=== PATIENT | female | born 1945 | race Caucasian/White ===

== ENCOUNTER 2017-10-26 20:40 | Inpatient (IN) ==
[2017-10-26] MEDS ORDERED: [UNRECOGNIZED DRUG - REMARK] OTHER SCH (20:45)
--- NOTE | 2017-10-26 21:20 | XR ---
EXAM DATE: 10/26/2017 9:10 PM EDT AGE/SEX: 89 years / Female INDICATIONS: Post Intubation CLINICAL DATA: This is the patient's initial encounter. Patient reports that signs and symptoms have been present for 1 day and indicates a pain score of Nonresponsive. MEDICAL/SURGICAL HISTORY: Non-responsive. Non-responsive. COMPARISON: No prior exams available for comparison. FINDINGS: Endotracheal tube tip in good position. NG coiled in stomach. Cardiomegaly. Mild edema pattern. CONCLUSION: Endotracheal tube and nasogastric tube in good position. Mild edema pattern. No pneumothorax. Electronically signed by: Álvaro Davis MD 10/26/2017 9:19 PM EDT
[2017-10-26 21:47] LABS: Baso # (Auto) 0.1 th/mm3 (0.0-0.2); Baso % (Auto) 0.8 % (0.0-2.0); Eos # (Auto) 0.2 th/mm3 (0.0-0.4); Hematocrit 33.6 % (35.0-46.0); Hemoglobin 10.3 gm/dL (11.6-15.3); Lymph # (Auto) 1.5 th/mm3 (1.0-4.8); Lymph % (Auto) 9.2 % (9.0-44.0); Mean Corpuscular Volume 84.4 fL (80.0-100.0); Mean Platelet Volume 11.1 fL (7.0-11.0); Mono % (Auto) 6.3 % (0.0-8.0); Neut # (Auto) 13.5 th/mm3 (1.8-7.7); Neut % (Auto) 82.7 % (16.0-70.0); Platelet Count 195 th/mm3 (150-450); Red Blood Count 3.97 mil/mm3 (4.00-5.30); Red Cell Distribution Width 18.3 % (11.6-17.2); White Blood Count 16.4 th/mm3 (4.0-11.0)
[2017-10-26 21:49] LABS: Mean Corpuscular HGB Conc 30.8 % (32.0-36.0)
[2017-10-26 22:12] LABS: Activated Partial Thrombo Time 26.8 sec (24.3-30.1); INR 1.1 Ratio; Prothrombin Time 10.8 sec (9.8-11.6)
[2017-10-26] MEDS ORDERED: Piperacil/Tazo 3.375 GM Premix 50 ML IV.SIG ONE (22:13)
[2017-10-26 22:14] LABS: Albumin 3.1 g/dL (3.4-5.0); Anion Gap 10 meq/L (5-15); Aspartate Aminotransferase 18 U/L (15-37); Blood Urea Nitrogen 37 mg/dL (7-18); Calcium 8.5 mg/dL (8.5-10.1); Carbon Dioxide 22.7 meq/L (21.0-32.0); Chloride 108 meq/L (98-107); Glomerular Filtration Rate 14 mL/min (>89); Glucose,Random 284 mg/dL (74-106); Magnesium 2.4 mg/dL (1.5-2.5); Potassium 3.9 meq/L (3.5-5.1); Sodium 141 meq/L (136-145)
[2017-10-26 22:15] LABS: Alanine Aminotransferase 32 U/L (10-53)
[2017-10-26 22:19] LABS: Alkaline Phosphatase 224 U/L (45-117); Creatine Kinase 148 U/L (26-192); Total Protein 7.2 g/dL (6.4-8.2); Troponin I 0.03 ng/mL (0.02-0.05)
[2017-10-26 22:23] LABS: Free T4 (Free Thyroxine) 1.39 ng/dL (0.76-1.46); Thyroid Stimulating Hormone 0.94 uIU/mL (0.358-3.740)
[2017-10-26 22:29] LABS: ABG PCO2 43 mmHg (38-42); ABG PO2 410 mmHg (61-120)
[2017-10-26 22:31] LABS: Creatine Kinase MB 6.2 ng/mL (0.5-3.6)
--- NOTE | 2017-10-26 22:31 | ED ---
HPI General Chief complaint: Shortness of Breath/Dyspnea Stated complaint: Respiratory/Evac Time Seen by Provider: 10/26/17 20:41 History of Present Illness HPI narrative: Patient brought in by EMS secondary to respiratory distress. She was driving from [place] with her when she developed shortness of breath. The pulled over to the side of the road and called EMS. Upon EMS arrival patient was not moving air and O2 sat was 77%. They gave 1 DuoNeb and advised that they heard rales afterwards. They then placed on CPAP and she subsequently did develop a decline in mental status. Gave her Lasix 70 mg IV and she was intubated with etomidate 20 mg and Versed 4 mg. Related Data Allergies Allergy/AdvReac Type Severity Reaction Status Date / Time atorvastatin [From Lipitor] Allergy unknown Verified 10/26/17 20:42 Iodinated Contrast- Oral and Allergy unknown Verified 10/26/17 20:42 IV Dye Review of Systems ROS Unobtainable due to endotracheal tube PMFSH Medical History Medical History Atrial fibrillation (Acute) Diabetes (Acute) Social History Social History Recent Travel in [facility] within the Last 8 Weeks: No Recent Out of Country Travel within the Last 8 Weeks: No Exam Narrative Exam Narrative: GENERAL: Intubated SKIN: Focused skin assessment warm/dry. HEAD: Atraumatic. Normocephalic. EYES: Pupils equal and round. No scleral icterus. No injection or drainage. ENT: No nasal bleeding or discharge. Mucous membranes pink and moist. NECK: Trachea midline. No JVD. CARDIOVASCULAR: Regular rate and rhythm. No murmur appreciated. RESPIRATORY: Crackles bilaterally GASTROINTESTINAL: Abdomen soft, non-tender, nondistended. Hepatic and splenic margins not palpable. MUSCULOSKELETAL: No obvious deformities. No clubbing. No cyanosis. NEUROLOGICAL: Intubated PSYCHIATRIC: Intubated Course Initial Documented Vital Signs Temperature 98.0 F 10/26/17 20:56 Pulse Rate 72 10/26/17 20:56 Respiratory Rate 20 10/26/17 20:56 Blood Pressure 161/72 H 10/26/17 20:56 Pulse Oximetry 100 10/26/17 20:56 Last Documented Vital Signs Temperature 98.0 F 10/26/17 20:56 Pulse Rate 64 10/26/17 22:16 Respiratory Rate 16 10/26/17 22:16 Blood Pressure 166/73 H 10/26/17 22:16 Pulse Oximetry 100 07/07/18 22:16 Critical Care Time Critical Care Time: Yes Total Critical Care Time: 35 Attestation: Aggregate critical care time was 35 minutes. Time to perform other separately billable procedures was not included in the critical care time. My time did not include minutes spent treating any other patients simultaneously or on activities that did not directly contribute to the patient's treatment. The services I provided to this patient were to treat and/or prevent clinically significant deterioration that could result in: , disability, increased morbidity and mortality I provided critical care services requiring my management, as noted below: Chart data review, documentation time, medication orders and management, vital sign assessments/reviewing monitor data, ordering and reviewing lab tests, ordering and interpreting/reviewing x-rays and diagnostic studies, care of the patient and discussion of the patient with the admitting physicians. Medical Decision Making MDM Narrative Medical decision making narrative: Patient presents to the emergency department secondary to respiratory distress. Patient was intubated in the field by EMS. Patient placed on manager cardiac cath, continuous pulse ox, and labs/chest x-ray ordered. OG tube was also placed the patient was started on propofol for sedation. ECG: SR, rate 72, LBBB (Dr Keene called, advised to place formal consult, no acute intervention at this time) CXR: pulm edema labs: elevated wbc count, decrease hgb/HCT; coags-wnl, abg-slightly acidotic; chem-gluocse increase, creatinine increased, CKMB, BNP increased lactate, bd cx, u/a and cx pening at timeof admit, admit MD to follow. patient starte don IV vancomycin 1gram IV and zosyn 3.375g IV. Grissom placed. Differential Diagnosis Differential Diagnosis: ACS, CHF, PNA, sepsis, pulmonary edema Lab Data Result diagrams: 10/26/17 21:05 10/26/17 21:05 Lab Results 10/26/17 10/26/17 10/26/17 Range/Units 21:05 21:05 21:05 WBC 16.4 H (4.0-11.0) th/mm3 RBC 3.97 L (4.00-5.30) mil/mm3 Hgb 10.3 L (11.6-15.3) gm/dL Hct 33.6 L (35.0-46.0) % MCV 84.4 (80.0-100.0) fL MCH 26.0 L (27.0-34.0) pg MCHC 30.8 L (32.0-36.0) % RDW 18.3 H (11.6-17.2) % Plt Count 195 (150-450) th/mm3 MPV 11.1 H (7.0-11.0) fL Neut % (Auto) 82.7 H (16.0-70.0) % Lymph % (Auto) 9.2 (9.0-44.0) % Snyder % (Auto) 6.3 (0.0-8.0) % Eos % (Auto) 1.0 (0.0-4.0) % Baso % (Auto) 0.8 (0.0-2.0) % Neut # (Auto) 13.5 H (1.8-7.7) th/mm3 Lymph # (Auto) 1.5 (1.0-4.8) th/mm3 Snyder # (Auto) 1.0 H (0.0-0.9) th/mm3 Eos # (Auto) 0.2 (0.0-0.4) th/mm3 Baso # (Auto) 0.1 (0.0-0.2) th/mm3 WBC Differential . Differential Comment Auto diff final PT (9.8-11.6) sec INR Ratio APTT (24.3-30.1) sec Puncture Site Patient Temperature O2 Saturation (90-100) % ABG pH (7.380-7.420) ABG pCO2 (38-42) mmHg ABG pO2 (61-120) mmHg ABG HCO3 (22-26) mmol/L ABG O2 Content (12.0-20.0) Vol % ABG Base Excess (-2-2) mmol/L ABG Methemoglobin (0-2) % Mio Test Hemoglobin (12.0-16.0) G/DL Carboxyhemoglobin (0-4) % O2 Delivery Device Vent Setting Inspired O2 % Critical Value Sodium 141 (136-145) meq/L Potassium 3.9 (3.5-5.1) meq/L Chloride 108 H (98-107) meq/L Carbon Dioxide 22.7 (21.0-32.0) meq/L Anion Gap 10 (5-15) meq/L BUN 37 H (7-18) mg/dL Creatinine 2.89 H (0.50-1.00) mg/dL Estimated GFR 14 L (>89) mL/min Random Glucose 284 H (74-106) mg/dL Calcium 8.5 (8.5-10.1) mg/dL Magnesium 2.4 (1.5-2.5) mg/dL Total Bilirubin 0.5 (0.2-1.0) mg/dL AST 18 (15-37) U/L ALT 32 (10-53) U/L Alkaline Phosphatase 224 H (45-117) U/L Total Creatine Kinase 148 (26-192) U/L CK-MB (CK-2) 6.2 H (0.5-3.6) ng/mL Troponin I 0.03 (0.02-0.05) ng/mL B-Natriuretic Peptide 3359 H (0-100) pg/mL Total Protein 7.2 (6.4-8.2) g/dL Albumin 3.1 L (3.4-5.0) g/dL TSH (0.358-3.740) uIU/mL Free T4 (0.76-1.46) ng/dL 10/26/17 10/26/17 10/26/17 Range/Units 21:05 21:05 22:00 WBC (4.0-11.0) th/mm3 RBC (4.00-5.30) mil/mm3 Hgb (11.6-15.3) gm/dL Hct (35.0-46.0) % MCV (80.0-100.0) fL MCH (27.0-34.0) pg MCHC (32.0-36.0) % RDW (11.6-17.2) % Plt Count (150-450) th/mm3 MPV (7.0-11.0) fL Neut % (Auto) (16.0-70.0) % Lymph % (Auto) (9.0-44.0) % Snyder % (Auto) (0.0-8.0) % Eos % (Auto) (0.0-4.0) % Baso % (Auto) (0.0-2.0) % Neut # (Auto) (1.8-7.7) th/mm3 Lymph # (Auto) (1.0-4.8) th/mm3 Snyder # (Auto) (0.0-0.9) th/mm3 Eos # (Auto) (0.0-0.4) th/mm3 Baso # (Auto) (0.0-0.2) th/mm3 WBC Differential Differential Comment PT 10.8 (9.8-11.6) sec INR 1.1 Ratio APTT 26.8 (24.3-30.1) sec Puncture Site Right radial Patient Temperature 98.6 O2 Saturation 98 (90-100) % ABG pH 7.36 L (7.380-7.420) ABG pCO2 43 H (38-42) mmHg ABG pO2 410 H (61-120) mmHg ABG HCO3 24 (22-26) mmol/L ABG O2 Content 14.5 (12.0-20.0) Vol % ABG Base Excess -1.0 (-2-2) mmol/L ABG Methemoglobin 0.4 (0-2) % Mio Test Present Hemoglobin 9.8 L (12.0-16.0) G/DL Carboxyhemoglobin 0.4 (0-4) % O2 Delivery Device Ventilator Vent Setting Prvc/ac Inspired O2 100 % Critical Value No Sodium (136-145) meq/L Potassium (3.5-5.1) meq/L Chloride (98-107) meq/L Carbon Dioxide (21.0-32.0) meq/L Anion Gap (5-15) meq/L BUN (7-18) mg/dL Creatinine (0.50-1.00) mg/dL Estimated GFR (>89) mL/min Random Glucose (74-106) mg/dL Calcium (8.5-10.1) mg/dL Magnesium (1.5-2.5) mg/dL Total Bilirubin (0.2-1.0) mg/dL AST (15-37) U/L ALT (10-53) U/L Alkaline Phosphatase (45-117) U/L Total Creatine Kinase (26-192) U/L CK-MB (CK-2) (0.5-3.6) ng/mL Troponin I (0.02-0.05) ng/mL B-Natriuretic Peptide (0-100) pg/mL Total Protein (6.4-8.2) g/dL Albumin (3.4-5.0) g/dL TSH 0.940 (0.358-3.740) uIU/mL Free T4 1.39 (0.76-1.46) ng/dL Imaging Data Radiologist's impression: ITS Impressions Chest X-Ray 10/26/17 20:42 CONCLUSION: Endotracheal tube and nasogastric tube in good position. Mild edema pattern. No pneumothorax. Discharge Plan Discharge Disposition Patient Disposition: 30 Still Patient Discharge Condition Condition: Critical Discharge Details Discharge Problem: Pulmonary edema, CHF (congestive heart failure) Physicians Team ED Provider: Shaniqua Mckee Primary Care Provider: UNKNOWN, Attending Provider: Gisele Lovett Discharge Interventions Interventions: Vital Signs Last Done: 10/26/17 22:16 Status ED Status: Admitted Patient
[2017-10-26] MEDS ORDERED: Vancomycin Inj 1 GM/200 ML PIGGYBACK IV.SIG SCH (23:00)
--- NOTE | 2017-10-26 23:05 | ECG ---
Date Performed: 10/26/2017 Time Performed: 20:46:04 PTAGE: 89 years EKG: Sinus rhythm POSSIBLE LEFT ATRIAL ENLARGEMENT LEFT BUNDLE BRANCH BLOCK ABNORMAL ECG NO PREVIOUS TRACING DOCTOR: Dionisio Keene Interpretating Date/Time 10/26/2017 23:03:36
--- NOTE | 2017-10-26 23:26 | P.HPCC ---
History of Present Illness Service: Critical care medicine Primary Care Physician: UNKNOWN Chief Complaint: Respiratory distress History of Present Illness: female with history of coronary artery disease with prior stents approximately 1 year ago, hypertension, diabetes mellitus on home insulin pump, end-stage renal disease on hemodialysis Saturday/Saturday/Saturday for the last year, former smoker ( also states "h/o VT or a stroke" but indicates no neuro deficits. She lives in [place] and she and her were driving home from [place] when she developed worsening SOB. Her states that she has difficulty with SOB that has been slowly progressing over months and that she "has good days and bad days" but her mobility is often limited by dyspnea while using her walker to walk a ~3-5 yards. She is not on home O2. She has been short of breath throughout the day today and thus had increased use of her nebulizer. Has chronic cough in the morning, not changed from baseline. No fever, sputum production, hemoptysis, chest pain, pleuritic symptoms, leg swelling or calf pain. She was in the car this evening when SOB worsened and her called 911. Sats were 77% when EVAC arrived and she had poor air movement bilaterally so she was given a DuoNeb. After the neb she reportedly had bibasilar Rales and so she was placed on CPAP however on CPAP her respiratory condition continued to worsen and she became less responsive. She was intubated in the field after receiving etomidate 20 mg IV and Versed 4 mg IV. EVAC also administered Lasix 70 mg IV. A Grissom catheter has been inserted in the ED and she has 300 of light yellow urine output. Chest x-ray shows satisfactory endotracheal tube and OG tube position. She has pulmonary edema. Her BP was 200/83 on arrival but has normalized after sedation with propofol. She has received vancomycin and Zosyn in the emergency department. EKG showed LBBB and there was no prior EKG for comparison ( unsure if pre-existing) . Troponin 0.03. Dr. Bullard discussed with Dr. Keene who recommended routine cardiology consultation. Last hemodialysis was performed in [place] on Saturday, 10/25. H - Diagnosis (1) Respiratory failure (2) LBBB (left bundle branch block) (3) CHF (congestive heart failure) (4) Pulmonary edema (5) IDDM (insulin dependent diabetes mellitus) (6) Hypothyroid (7) ESRD (end stage renal disease) on dialysis (8) Anemia (9) Leukocytosis (10) CAD (coronary artery disease) (11) Stented coronary artery (12) HTN (hypertension) (13) HLD (hyperlipidemia) Inpatient Certification: I certify that the inpatient services were ordered in accordance with Medicare regulations governing the order. This includes certification that hospital inpatient services are reasonable and necessary and in the case of services not specified as inpatient-only under 42 CFR 419.22(n), that they are appropriately provided as inpatient services in accordance to with the 2-midnight benchmark under 43 CFR 412.3(e) Review of Systems unobtainable due to endotracheal tube PMFSH - History History Provided By: Family Member, Photography Professor / EMT - Medical History Medical History: Medical History (Last Updated 10/27/17 @ 00:31 by Gisele Lovett MD) Atrial fibrillation CAD (coronary artery disease) Diabetes ESRD (end stage renal disease) on dialysis H/O tobacco use, presenting hazards to health Obesity - Surgical History Surgical History: Surgical History (Last Updated 10/27/17 @ 00:31 by Gisele Lovett MD) Stented coronary artery - Family History Family History: Family History (Last Updated 10/27/17 @ 00:32 by Gisele Lovett MD) Mother Family history of diabetes mellitus - Tobacco History Tobacco Use In Past 30 Days: No Smoking Status: Former smoker Tobacco Type: Cigarettes Cigarettes Per Day: 6 Years Smoked: 1 Smoking End Date: 50 years ago - Alcohol History How Often Do You Have a Drink Containing Alcohol: Monthly or less - Substance Use History Substance History: No History of Abuse - Travel History History of Recent Travel: Yes Recent Travel in the [place] Within the Last 8 Weeks: Yes Recent Travel Out of the Country Within the Last 8 Weeks: No Medications and Allergies Active Medications: Active Medications Propofol (Diprivan 1000 Mg/100 Ml Inj) 1,000 mg in 100 mls @ 2.1 mls/hr IV.CONT TITRATE PRN; Protocol PRN Reason: Per Protocol Vancomycin/Sodium Chloride (Vancomycin Inj) 1 gm in 200 mls @ 200 mls/hr IV.SIG FAMILY ENGAGEMENT SPECIALIST SCOTT Miscellaneous Information (Misc Nursing Information) 0 each OTHER Q15M SCOTT Allergies Allergy/AdvReac Type Severity Reaction Status Date / Time atorvastatin [From Lipitor] Allergy unknown Verified 10/26/17 20:42 Iodinated Contrast- Oral and Allergy unknown Verified 10/26/17 20:42 IV Dye Home Medications Medication Instructions Recorded Confirmed Type QUA-fpmyaiuusbjal-drum-buffers 2 tab PO Q6H PRN 10/26/17 10/27/17 History [Vanquish] Dialyvite 800 with Zinc 15 800 PO DAILY 10/26/17 History amlodipine 10 mg PO DAILY 10/26/17 10/26/17 History aspirin 81 mg PO DAILY 10/26/17 10/26/17 History carvedilol [Coreg] 12.5 mg PO BID 10/26/17 10/26/17 History furosemide 60 mg PO DAILY 10/26/17 10/26/17 History hydralazine 50 mg PO TID 10/26/17 10/26/17 History isosorbide mononitrate 30 mg PO DAILY 10/26/17 10/26/17 History levothyroxine 137 PO 10/26/17 History metolazone 5 mg PO DAILY 10/26/17 10/26/17 History simvastatin 40 mg PO QPM 10/26/17 10/26/17 History ticagrelor [Brilinta] 90 mg PO BID 10/26/17 10/26/17 History alprazolam 0.25 mg PO BID PRN 10/27/17 10/27/17 History temazepam [Restoril] 15 PO HS PRN 10/27/17 History Results - Labs CBC & Chem 7: 10/27/17 13:39 10/27/17 13:39 Labs: Short CBC 10/26/17 Range/Units 21:05 WBC 16.4 H (4.0-11.0) th/mm3 Hgb 10.3 L (11.6-15.3) gm/dL Hct 33.6 L (35.0-46.0) % Plt Count 195 (150-450) th/mm3 BMP 10/26/17 21:05 Sodium 141 Potassium 3.9 Chloride 108 H Carbon Dioxide 22.7 BUN 37 H Creatinine 2.89 H Calcium 8.5 Cardiac Enzymes 10/26/17 Range/Units 21:05 Total Creatine Kinase 148 (26-192) U/L CK-MB (CK-2) 6.2 H (0.5-3.6) ng/mL Troponin I 0.03 (0.02-0.05) ng/mL Liver Function 10/26/17 Range/Units 21:05 Total Bilirubin 0.5 (0.2-1.0) mg/dL AST 18 (15-37) U/L ALT 32 (10-53) U/L Alkaline Phosphatase 224 H (45-117) U/L Albumin 3.1 L (3.4-5.0) g/dL - Imaging Impressions Chest X-Ray 10/26/17 20:42 CONCLUSION: Endotracheal tube and nasogastric tube in good position. Mild edema pattern. No pneumothorax. Exam Vital signs: Vital Signs 10/26/17 20:56 10/26/17 21:19 10/26/17 21:33 Temperature 98.0 F Pulse Rate 72 68 Respiratory Rate 16 Blood Pressure 161/72 H 185/114 H 195/88 H Pulse Oximetry 100 100 99 10/26/17 21:36 10/26/17 21:45 10/26/17 22:16 Temperature Pulse Rate 67 66 64 Respiratory Rate 16 Blood Pressure 200/83 H 170/75 H 166/73 H Pulse Oximetry 100 100 100 Intake & Output 10/26/17 10/26/17 10/27/17 06:59 18:59 06:59 Weight 70 kg Narrative: GENERAL: Elderly female who is orotracheally intubated. She is on sedation with propofol 40 mcg/kg/min. SKIN: Warm and dry, adequately perfused. HEAD: Atraumatic. Normocephalic. EYES: Pupils pinpoint bilaterally.. No scleral icterus. No injection or drainage. ENT: No nasal bleeding or discharge. Mucous membranes pink and moist. NECK: Orotracheally intubated, trachea midline. CARDIOVASCULAR: Regular rate and rhythm, sinus rhythm on the monitor with rate in the 60s-70s. No murmurs rubs or gallops. RESPIRATORY: Orotracheally intubated on mechanical ventilation, synchronous with vent. Coarse bibasilar breath sounds. GASTROINTESTINAL: Abdomen soft, non-tender, nondistended, no rebound or guarding appreciated.. Insulin pump in place. Bowel sounds present. MUSCULOSKELETAL: Extremities without clubbing, cyanosis, or edema. No calf swelling or tenderness or erythema. NEUROLOGICAL: Eyes open to voice and spontaneously moving all extremities with purposeful movements towards endotracheal tube. Does not follow commands. Unable to assess speech. Caprini VTE Risk Assessment Caprini VTE Risk Assessment: Moderate/High Risk (score >= 2) Caprini Risk Assessment Model: Point Value = 1 Point Value = 2 Point Value = 3 Point Value = 5 Age 41-60 Minor surgery BMI > 25 kg/m2 Swollen legs Varicose veins or History of unexplained or recurrent spontaneous Oral contraceptives or hormone replacement Sepsis (< 1 month) Serious lung disease, including pneumonia (< 1 month) Abnormal pulmonary function Acute myocardial infarction Congestive heart failure (< 1 month) History of inflammatory bowel disease Medical patient at bed rest Age 61-74 Arthroscopic surgery Major open surgery (> 45 min) Laparoscopic surgery (> 45 min) Malignancy Confined to bed (> 72 hours) Immobilizing plaster cast Central venous access Age >= 75 History of VTE Family history of VTE Factor V Leiden Prothrombin [id number] Lupus anticoagulant Anticardiolipin antibodies Elevated serum homocysteine Heparin-induced thrombocytopenia Other congenital or acquired thrombophilia Stroke (< 1 month) Elective arthroplasty Hip, pelvis, or leg fracture Acute spinal cord injury (< 1 month) Prophylaxis Regimen: Total Risk Factor Score Risk Level Prophylaxis Regimen 0-1 Low Early ambulation 2 Moderate Order ONE of the following: *Sequential Compression Device (SCD) *Heparin 5000 units SQ BID 3-4 Higher Order ONE of the following medications: *Heparin 5000 units SQ TID *Enoxaparin/Lovenox 40 mg SQ daily (WT < 150 kg, CrCl > 30 mL/min) *Enoxaparin/Lovenox 30 mg SQ daily (WT < 150 kg, CrCl > 10-29 mL/min) *Enoxaparin/Lovenox 30 mg SQ BID (WT < 150 kg, CrCl > 30 mL/min) AND/OR *Sequential Compression Device (SCD) 5 or more Highest Order ONE of the following medications: *Heparin 5000 units SQ TID (Preferred with Epidurals) *Enoxaparin/Lovenox 40 mg SQ daily (WT < 150 kg, CrCl > 30 mL/min) *Enoxaparin/Lovenox 30 mg SQ daily (WT < 150 kg, CrCl > 10-29 mL/min) *Enoxaparin/Lovenox 30 mg SQ BID (WT < 150 kg, CrCl > 30 mL/min) AND *Sequential Compression Device (SCD) Assessment and Plan - Problem List (1) Respiratory failure Code(s): J96.90 - Respiratory failure, unspecified, unspecified whether with hypoxia or hypercapnia Status: Acute (2) LBBB (left bundle branch block) Code(s): I44.7 - Left bundle-branch block, unspecified Status: Chronic Onset Date: Unknown (3) CHF (congestive heart failure) Code(s): I50.9 - Heart failure, unspecified Status: Acute (4) Pulmonary edema Code(s): J81.1 - Chronic pulmonary edema Status: Acute (5) IDDM (insulin dependent diabetes mellitus) Code(s): E11.9 - Type 2 diabetes mellitus without complications; Z79.4 - longterm (current) use of insulin Status: Chronic (6) Hypothyroid Code(s): E03.9 - Hypothyroidism, unspecified Status: Chronic (7) ESRD (end stage renal disease) on dialysis Code(s): N18.6 - End stage renal disease; Z99.2 - Dependence on renal dialysis Status: Chronic (8) Anemia Code(s): D64.9 - Anemia, unspecified Status: Chronic (9) Leukocytosis Code(s): D72.829 - Elevated white blood cell count, unspecified Status: Acute (10) CAD (coronary artery disease) Code(s): I25.10 - Atherosclerotic heart disease of [place] coronary artery without angina pectoris Status: Chronic (11) Stented coronary artery Code(s): Z95.5 - Presence of coronary angioplasty implant and graft Status: Chronic (12) HTN (hypertension) Code(s): I10 - Essential (primary) hypertension Status: Chronic (13) HLD (hyperlipidemia) Code(s): E78.5 - Hyperlipidemia, unspecified Status: Chronic - Assessment and Plan Plan: NEURO: Propofol for sedation, target RASS -2 RESP: Acute respiratory failure Pulmonary edema Duoneb every 6 hours. Albuterol q2 hours as needed. Vent Bundle. CPAP trials following HD and extubate if tolerated. She has an outpatient art glass designer, her is uncertain of physician name. CV: Hypertension Hyperlipidemia Coronary artery disease with prior stents (reportedly about a year ago) Left bundle branch block Significant hypertension on presentation is now normalized on propofol drip. Follow-up troponins and EKG Obtain 2D echo Cardiology consult Continue aspirin, Brilinta, statin, beta-jeff GI: OG tube in place. In satisfactory position on chest x-ray. Low intermittent wall suction. Bowel regimen. FEN/RENAL: End-stage renal disease on HD She does still make some urine. A Grissom catheter has been placed in the ED which will continue for now to monitor intake and output. Lasix 70 mg IV was provided per EVAC. Will consult nephrology for hemodialysis, currently not emergent but will need dialysis tomorrow to facilitate vent weaning. Her front office administrator is from out [place] [facility], states "Dr. Newton". She has been on HD ~ 1year. Has LUE fistula, Last HD 10/25. ID: Leukocytosis She received Zosyn and vancomycin in the emergency department. Blood cultures and urine culture were sent in the ED. Will obtain sputum culture HEME: Chronic anemia Monitor CBC ENDO: Insulin-dependent diabetes mellitus Hold insulin pump. Insulin drip algorithm #3. Hypothyroidism Follow-up TSH, resume Synthroid if appropriate PROPH: Heparin 5000 units subcu every 12 hours and SCDs for DVT prophylaxis. Famotidine 10 mg IV every 12 hours for stress ulcer prophylaxis. ACCESS: Peripheral IV providing adequate access at this time. Has been updated at bedside. Multiple questions answered. She has had multiple issues with shortness of breath and volume overload but has never been intubated in the past. Full code Level 3 H&P (3) CHF (congestive heart failure) Qualifiers: Heart failure type: unspecified Heart failure chronicity: unspecified Qualified Code(s): I50.9 - Heart failure, unspecified (4) Pulmonary edema Qualifiers: Chronicity: acute Qualified Code(s): J81.0 - Acute pulmonary edema
[2017-10-26] MEDS: Propofol 1000 mg/100 ml Inj 1,000 MG/100 ML BOTTLE IV.CONT PRN (23:49)
[2017-10-27] MEDS ORDERED: Dextrose 50% in Water 50 ML Vial IV.PUSH PRN ×2 (00:03→07:58)
[2017-10-27] MEDS ORDERED: Acetaminophen 325 MG Tablet PO PRN ×2 (00:06→10:28)
[2017-10-27] MEDS ORDERED: Bisacodyl 10 MG Supp RECTAL PRN (00:06)
[2017-10-27] MEDS ORDERED: Insulin Regular (For Infusion) 100 UNIT in Sodium Chlor 0.9% Inj 99 ML IV.CONT PRN (00:30)
[2017-10-27] MEDS: Heparin - SQ 10,000 UNITS/ML Vial SQ SCH ×2 (00:38→13:08)
[2017-10-27 01:21] LABS: Amorphous Sediment,Urine Many /hpf; Bacteria,Urine Rare /hpf; Bilirubin,Urine Negative (Negative); Clarity,Urine Clear (Clear); Color,Urine Yellow (Yellw/Straw); Glucose,Urine (UA) 50 mg/dL (Negative); Hyaline Casts,Urine 3 /lpf (0-3); Leukocyte Esterase,Urine Negative (Negative); Nitrite,Urine Negative (Negative); Specific Gravity,Urine 1.009 (1.002-1.035); Squamous Epithelial Cell,Urine <1 /hpf (0-5)
[2017-10-27] MEDS ORDERED: Chlorhexidine Gluconate 2% 1 Pack (2 Cloths) TOPICAL PRN (04:00)
[2017-10-27 08:54] LABS: Hemoglobin 9.8 gm/dL (11.6-15.3); Mean Corpuscular HGB Conc 31.5 % (32.0-36.0); Mean Corpuscular Volume 82.6 fL (80.0-100.0); Mean Platelet Volume 10.7 fL (7.0-11.0); Platelet Count 161 th/mm3 (150-450); Red Blood Count 3.75 mil/mm3 (4.00-5.30); Red Cell Distribution Width 18.6 % (11.6-17.2); White Blood Count 13.4 th/mm3 (4.0-11.0)
[2017-10-27 09:35] LABS: Alanine Aminotransferase 26 U/L (10-53); Albumin 2.8 g/dL (3.4-5.0); Alkaline Phosphatase 164 U/L (45-117); Anion Gap 13 meq/L (5-15); Aspartate Aminotransferase 12 U/L (15-37); Blood Urea Nitrogen 44 mg/dL (7-18); Calcium 9.1 mg/dL (8.5-10.1); Carbon Dioxide 22.4 meq/L (21.0-32.0); Chloride 107 meq/L (98-107); Glomerular Filtration Rate 13 mL/min (>89); Glucose,Random 142 mg/dL (74-106); Potassium 3.5 meq/L (3.5-5.1); Sodium 142 meq/L (136-145); Total Protein 6.6 g/dL (6.4-8.2)
[2017-10-27] MEDS: Chlorhexidine Gluconate 2% 1 Pack (2 Cloths) TOPICAL SCH (09:49)
[2017-10-27] MEDS: Insulin NovoLIN Regular Correctional Sugar Inj SQ SCH ×4 (10:10→21:04)
[2017-10-27] MEDS: hydrALAZINE 50 MG Tablet PO SCH ×3 (10:11→20:53)
[2017-10-27] MEDS: Famotidine PF Inj 20 MG/2 ML Vial IV.PUSH SCH ×2 (10:11→20:55)
[2017-10-27] MEDS: Oral Hygiene Kit OROPHARYNG SCH ×3 (10:11→16:14)
[2017-10-27] MEDS: Chlorhexidine 0.12% Oral Kit 15 ML UDC OROPHARYNG SCH ×2 (10:11→20:54)
[2017-10-27] MEDS: Furosemide 20 MG Tablet PO SCH (10:11)
[2017-10-27] MEDS: amLODIPine 10 MG Tablet PO SCH (10:12)
[2017-10-27] MEDS: metOLazone 5 MG Tablet PO SCH (10:12)
[2017-10-27] MEDS: Carvedilol 12.5 MG Tablet PO SCH ×2 (10:12→20:55)
[2017-10-27] MEDS: Senna/Docusate Sodium 8.6/50 MG Tablet PO SCH ×2 (10:12→20:55)
--- NOTE | 2017-10-27 10:21 | P.PNCC ---
Subjective Subjective Remarks/Hospital Course: female with history of coronary artery disease with prior stents approximately 1 year ago, hypertension, diabetes mellitus on home insulin pump, end-stage renal disease on hemodialysis Saturday/Saturday/Saturday for the last year, former smoker ( also states "h/o CA or a stroke" but indicates no neuro deficits. She lives in [place] and she and her were driving home from [place] when she developed worsening SOB. Her states that she has difficulty with SOB that has been slowly progressing over months and that she "has good days and bad days" but her mobility is often limited by dyspnea while using her walker to walk a ~3-5 yards. She is not on home O2. She has been short of breath throughout the day today and thus had increased use of her nebulizer. Has chronic cough in the morning, not changed from baseline. No fever, sputum production, hemoptysis, chest pain, pleuritic symptoms, leg swelling or calf pain. She was in the car this evening when SOB worsened and her called 911. Sats were 77% when EVAC arrived and she had poor air movement bilaterally so she was given a DuoNeb. After the neb she reportedly had bibasilar Rales and so she was placed on CPAP however on CPAP her respiratory condition continued to worsen and she became less responsive. She was intubated in the field after receiving etomidate 20 mg IV and Versed 4 mg IV. EVAC also administered Lasix 70 mg IV. A Grissom catheter has been inserted in the ED and she has 300 of light yellow urine output. Chest x-ray shows satisfactory endotracheal tube and OG tube position. She has pulmonary edema. Her BP was 200/83 on arrival but has normalized after sedation with propofol. She has received vancomycin and Zosyn in the emergency department. EKG showed LBBB and there was no prior EKG for comparison ( unsure if pre-existing) . Troponin 0.03. Dr. Bullard discussed with Dr. Keene who recommended routine cardiology consultation. Last hemodialysis was performed in [place] on Saturday, 10/25. 10/27 Patient is sedated with Diprivan and intubated. Afebrile. Objective Vital Signs / I&O: Vital Signs 10/26/17 20:56 10/26/17 21:19 10/26/17 21:33 Temperature 98.0 F Pulse Rate 72 68 Respiratory Rate 16 Blood Pressure 161/72 H 185/114 H 195/88 H Pulse Oximetry 100 100 99 10/26/17 21:36 10/26/17 21:45 10/26/17 22:16 Temperature Pulse Rate 67 66 64 Respiratory Rate 16 Blood Pressure 200/83 H 170/75 H 166/73 H Pulse Oximetry 100 100 100 10/26/17 23:48 10/26/17 23:51 10/27/17 01:00 Temperature 97.8 F Pulse Rate 56 L 61 Respiratory Rate 16 17 16 Blood Pressure 143/68 H 142/63 H Pulse Oximetry 100 100 100 10/27/17 02:00 10/27/17 02:20 10/27/17 02:24 Temperature 97.8 F Pulse Rate 56 L 51 L 51 L Respiratory Rate 16 16 Blood Pressure 142/63 H 142/63 H Pulse Oximetry 100 10/27/17 02:34 10/27/17 03:00 10/27/17 03:31 Temperature 97.4 F L Pulse Rate 60 55 L Respiratory Rate 20 21 16 Blood Pressure 153/72 H 152/67 H Pulse Oximetry 100 100 10/27/17 03:37 10/27/17 03:42 10/27/17 03:45 Temperature Pulse Rate 54 L 57 L Respiratory Rate 16 16 21 Blood Pressure 154/67 H Pulse Oximetry 100 100 10/27/17 04:00 10/27/17 04:15 10/27/17 04:30 Temperature 97.5 F L Pulse Rate 56 L 54 L 55 L Respiratory Rate 16 18 17 Blood Pressure 151/67 H 144/63 H 139/63 Pulse Oximetry 100 100 100 10/27/17 04:45 10/27/17 05:00 10/27/17 05:15 Temperature 97.8 F Pulse Rate 53 L 52 L 53 L Respiratory Rate 16 16 16 Blood Pressure 142/63 H 134/63 136/63 Pulse Oximetry 100 100 100 10/27/17 05:30 10/27/17 05:45 10/27/17 06:00 Temperature 97.8 F Pulse Rate 56 L 55 L 54 L Respiratory Rate 16 16 16 Blood Pressure 145/68 H 142/65 H 141/64 H Pulse Oximetry 100 100 100 10/27/17 06:15 10/27/17 06:30 10/27/17 06:45 Temperature Pulse Rate 50 L 49 L 55 L Respiratory Rate 16 16 16 Blood Pressure 124/59 L 116/58 L 137/63 Pulse Oximetry 100 100 100 10/27/17 07:00 10/27/17 07:01 10/27/17 07:15 Temperature 97.6 F Pulse Rate 62 61 61 Respiratory Rate 17 16 16 Blood Pressure 152/71 H 152/71 H 159/74 H Pulse Oximetry 100 100 100 10/27/17 07:30 10/27/17 07:45 10/27/17 08:00 Temperature Pulse Rate 60 60 59 L Respiratory Rate 16 16 22 Blood Pressure 155/71 H 157/71 H Pulse Oximetry 100 100 100 10/27/17 08:05 10/27/17 08:15 10/27/17 08:32 Temperature 99.4 F Pulse Rate 61 60 Respiratory Rate 26 H 17 16 Blood Pressure 108/70 113/63 Pulse Oximetry 100 100 100 Intake & Output 10/26/17 10/27/17 10/27/17 18:59 06:59 18:59 Intake Total 250 / 250 Output Total 700 / 700 Balance -450 / -450 Weight 68.1 kg Intake: IV 250 / 250 Zosyn 3.375 GM Premix 50 ML @ 50 / 50 100 mls/hr IV.SIG ONCE ONE Rx#: [id number] Vancomycin Inj 1 gm In 200 ml @ 200 / 200 200 mls/hr IV.SIG [facility] Rx#:[id number] Oral 0 / 0 Output: Urine Amount (Catheter) 700 / 700 Indwelling Temp Sensing 700 / 700 Catheter Other: Weight On Admission 68.1 kg Result Diagrams: 10/27/17 08:29 10/27/17 08:29 Other Results: Laboratory Results - last 12 hr 10/26/17 10/26/17 10/26/17 21:05 21:05 21:05 WBC RBC Hgb Hct MCV MCH MCHC RDW Plt Count MPV PT 10.8 INR 1.1 APTT 26.8 Puncture Site Patient Temperature O2 Saturation ABG pH ABG pCO2 ABG pO2 ABG HCO3 ABG O2 Content ABG Base Excess ABG Methemoglobin Mio Test Hemoglobin Carboxyhemoglobin O2 Delivery Device Vent Setting Inspired O2 Critical Value Sodium 141 Potassium 3.9 Chloride 108 H Carbon Dioxide 22.7 Anion Gap 10 BUN 37 H Creatinine 2.89 H Estimated GFR 14 L Random Glucose 284 H Lactic Acid Calcium 8.5 Magnesium 2.4 Total Bilirubin 0.5 AST 18 ALT 32 Alkaline Phosphatase 224 H Total Creatine Kinase 148 CK-MB (CK-2) 6.2 H Troponin I 0.03 B-Natriuretic Peptide 3359 H Total Protein 7.2 Albumin 3.1 L TSH Free T4 Urine Color Urine Clarity Urine pH Ur Specific Lester Urine Protein Urine Glucose (UA) Urine Ketones Urine Occult Blood Urine Nitrate Urine Bilirubin Urine Urobilinogen Ur Leukocyte Esterase Urine RBC Urine WBC Ur Squamous Epith Cells Amorphous Sediment Urine Bacteria Hyaline Casts Micro UA Comment Urine Culture Comments Nasal Screen MRSA (PCR) 10/26/17 10/26/17 10/26/17 21:05 21:05 22:00 WBC RBC Hgb Hct MCV MCH MCHC RDW Plt Count MPV PT INR APTT Puncture Site Right radial Patient Temperature 98.6 O2 Saturation 98 ABG pH 7.36 L ABG pCO2 43 H ABG pO2 410 H ABG HCO3 24 ABG O2 Content 14.5 ABG Base Excess -1.0 ABG Methemoglobin 0.4 Mio Test Present Hemoglobin 9.8 L Carboxyhemoglobin 0.4 O2 Delivery Device Ventilator Vent Setting Prvc/ac Inspired O2 100 Critical Value No Sodium Potassium Chloride Carbon Dioxide Anion Gap BUN Creatinine Estimated GFR Random Glucose Lactic Acid Calcium Magnesium Total Bilirubin AST ALT Alkaline Phosphatase Total Creatine Kinase CK-MB (CK-2) Troponin I B-Natriuretic Peptide Total Protein Albumin TSH 0.940 Free T4 1.39 Urine Color Yellow Urine Clarity Clear Urine pH 5.0 Ur Specific Lester 1.009 Urine Protein 100 H Urine Glucose (UA) 50 Urine Ketones Negative Urine Occult Blood Small H Urine Nitrate Negative Urine Bilirubin Negative Urine Urobilinogen Less than 2 Ur Leukocyte Esterase Negative Urine RBC 1 Urine WBC 1 Ur Squamous Epith Cells <1 Amorphous Sediment Many H Urine Bacteria Rare H Hyaline Casts 3 Micro UA Comment Cath-culture ind Urine Culture Comments Cath-cult indicated Nasal Screen MRSA (PCR) 10/26/17 10/27/17 10/27/17 22:55 02:45 03:47 WBC RBC Hgb Hct MCV MCH MCHC RDW Plt Count MPV PT INR APTT Puncture Site Patient Temperature O2 Saturation ABG pH ABG pCO2 ABG pO2 ABG HCO3 ABG O2 Content ABG Base Excess ABG Methemoglobin Mio Test Hemoglobin Carboxyhemoglobin O2 Delivery Device Vent Setting Inspired O2 Critical Value Sodium Potassium Chloride Carbon Dioxide Anion Gap BUN Creatinine Estimated GFR Random Glucose Lactic Acid 0.9 Calcium Magnesium Total Bilirubin AST ALT Alkaline Phosphatase Total Creatine Kinase CK-MB (CK-2) Troponin I 0.05 B-Natriuretic Peptide Total Protein Albumin TSH Free T4 Urine Color Urine Clarity Urine pH Ur Specific Lester Urine Protein Urine Glucose (UA) Urine Ketones Urine Occult Blood Urine Nitrate Urine Bilirubin Urine Urobilinogen Ur Leukocyte Esterase Urine RBC Urine WBC Ur Squamous Epith Cells Amorphous Sediment Urine Bacteria Hyaline Casts Micro UA Comment Urine Culture Comments Nasal Screen MRSA (PCR) Not detected 10/27/17 10/27/17 10/27/17 08:29 08:29 08:29 WBC 13.4 H RBC 3.75 L Hgb 9.8 L Hct 31.0 L MCV 82.6 MCH 26.0 L MCHC 31.5 L RDW 18.6 H Plt Count 161 MPV 10.7 PT INR APTT Puncture Site Patient Temperature O2 Saturation ABG pH ABG pCO2 ABG pO2 ABG HCO3 ABG O2 Content ABG Base Excess ABG Methemoglobin Mio Test Hemoglobin Carboxyhemoglobin O2 Delivery Device Vent Setting Inspired O2 Critical Value Sodium 142 Potassium 3.5 Chloride 107 Carbon Dioxide 22.4 Anion Gap 13 BUN 44 H Creatinine 3.07 H Estimated GFR 13 L Random Glucose 142 H D Lactic Acid Calcium 9.1 Magnesium Total Bilirubin 0.6 AST 12 L ALT 26 Alkaline Phosphatase 164 H Total Creatine Kinase CK-MB (CK-2) Troponin I 0.04 B-Natriuretic Peptide Total Protein 6.6 D Albumin 2.8 L TSH Free T4 Urine Color Urine Clarity Urine pH Ur Specific Lester Urine Protein Urine Glucose (UA) Urine Ketones Urine Occult Blood Urine Nitrate Urine Bilirubin Urine Urobilinogen Ur Leukocyte Esterase Urine RBC Urine WBC Ur Squamous Epith Cells Amorphous Sediment Urine Bacteria Hyaline Casts Micro UA Comment Urine Culture Comments Nasal Screen MRSA (PCR) Imaging: Chest X-Ray 10/26/17 20:42 CONCLUSION: Endotracheal tube and nasogastric tube in good position. Mild edema pattern. No pneumothorax. Objective Remarks: GENERAL: Patient is intubated and sedated. SKIN: Warm and dry. HEAD: Normocephalic. EYES: No scleral icterus. No injection or drainage. NECK: Supple, trachea midline. No JVD or lymphadenopathy. CARDIOVASCULAR: Regular rate and rhythm without murmurs, gallops, or rubs. RESPIRATORY: Breath sounds equal bilaterally. No accessory muscle use. GASTROINTESTINAL: Abdomen soft, non-tender, nondistended. MUSCULOSKELETAL: No cyanosis, or edema. Neuro: Sedated. Assessment and Plan - Assessment and Plan Plan: NEURO: Propofol for sedation, target RASS -2 Daily sedation vacation. RESP: Acute respiratory failure Pulmonary edema Continue with vent support keep sats >92% Duoneb every 6 hours. Albuterol q2 hours as needed. Vent Bundle. CPAP trials following HD CV: Hypertension Hyperlipidemia Coronary artery disease with prior stents (reportedly about a year ago) Left bundle branch block Significant hypertension on presentation is now normalized on propofol drip. Follow-up troponins and EKG 2D echo ordered and Cardiology consulted Continue aspirin, Brilinta 90mg BID, statin, Coreg 3.125mg BID, Hydralazine 50mg TID, Norvasc 10mg daily GI: Start tube feeds- Nepro with goal rate 40ml/hr On Pepcid for GI prophylaxis FEN/RENAL: End-stage renal disease on HD Monitor renal function, I/O's, avoid nephrotoxins Renal consulted. On Lasix 60mg daily and Zaroxolyn 5mg daily. Her casting room helper is from out [facility], states "Dr. Newton". She has been on HD ~ 1year. Has LUE fistula, Last HD 10/25. HD per renal. ID: Leukocytosis.. trending down She received Zosyn and vancomycin in the emergency department. Continue abx and monitor for signs of infections ( fever, WBC) WBC is trending down. Follow up on Blood, sputum and urine cultures HEME: Chronic anemia Monitor CBC ENDO: Insulin-dependent diabetes mellitus Place on SSI with accuchecks Hypothyroidism TSH: 0.94 PROPH: Heparin 5000 units subcu every 12 hours and SCDs for DVT prophylaxis. Famotidine 10 mg IV every 12 hours for stress ulcer prophylaxis. Doppler US LE negative for DVT ACCESS: Peripheral IV providing adequate access at this time. Full code Level 3
[2017-10-27] MEDS ORDERED: Heparin 10,000 UNITS/10 ML Vial (for IV use) IV.FLUSH PRN (10:28)
[2017-10-27] MEDS ORDERED: Sod Chloride 0.9% Inj 1,000 ML OTHER PRN ×2 (10:28)
[2017-10-27] MEDS ORDERED: Heparin 10,000 UNITS/10 ML Vial (for IV use) OTHER PRN (10:28)
[2017-10-27] MEDS ORDERED: Sod Chloride 0.9% Inj 1,000 ML IV.CONT PRN (10:28)
[2017-10-27] MEDS ORDERED: Gelatin 12 MM/7 MM Topical Foam TOPICAL PRN (10:28)
--- NOTE | 2017-10-27 11:13 | MB ---
cc: Gianni Morales MD DATE: 10/27/2017 REASON FOR CONSULTATION: End-stage renal disease management. HISTORY OF PRESENT ILLNESS: This is a 75-year-old female with an apparent history of end-stage renal disease for approximately 1 year. The patient receives her dialysis in the [facility] area with Dr. Newton, who is her foster care therapist there. The patient has a long history of COPD as well as CAD. Apparently, she was traveling with her from [place] driving home to [place] when she developed progressive shortness of breath. She apparently has had ongoing COPD with dyspnea and uses a walker; however, is limited by dyspnea after walking more than 3-5 yards at baseline. Apparently, the patient had progressive shortness of breath and was brought here to the hospital. Here the patient's respiratory status continued to decline after initially attempted ventilation with CPAP and she was eventually intubated. The patient was given a dose of Lasix and she had some urine output; however, her chest x-ray showed findings of significant pulmonary edema. The patient was intubated. Her blood pressure was also elevated with a blood pressure of 200/83 on arrival; however, after sedation and intubation, her blood pressure normalized and now is running systolics 80s-90s. There is a question of some possible infiltration on the x-ray and she was given empiric vancomycin and Zosyn as well. Regarding her cardiac status, EKG showed a left bundle branch block. It was unclear if this was new or old. There are no previous records here for comparison. Her troponins are stable at 0.04 and Cardiology has been consulted for further evaluation. At this time, the patient is intubated in the ICU. She apparently had her last hemodialysis done 2 days ago outpatient, presumably in [place] on her way down here. Nephrology was consulted for further evaluation. REVIEW OF SYSTEMS: Unobtainable, as the patient is intubated at this time. PAST MEDICAL HISTORY: Reviewed from the chart. PAST MEDICAL HISTORY: Includes atrial fibrillation, CAD, diabetes, ESRD, on hemodialysis, apparently last done on Saturday. The patient follows up with Dr. Newton in [place], [place]. Also, history of tobacco use with COPD, obesity. SURGICAL HISTORY: Includes coronary stents, left radiocephalic fistula with good thrill. SOCIAL HISTORY: Diabetes. Tobacco history, a former smoker with 6 cigarettes per day, however, quit over 50 years ago, otherwise social history negative. FAMILY HISTORY: Unknown. PHYSICAL EXAMINATION: VITAL SIGNS: At the time of evaluation, temperature 99.4, pulse 60, respiratory rate 17 on ventilator, blood pressure 113/63, pulse oximetry 100% on 30% FiO2. GENERAL: Intubated, sedated. NECK: Soft, supple. CARDIAC: Regular rate and rhythm. PULMONARY: Clear to auscultation; however, rales at bases. ABDOMEN: Soft, nontender, nondistended. EXTREMITIES: No edema. LABORATORY DATA: Sodium 142, potassium 3.5, chloride 107, bicarbonate 22, BUN 44, creatinine 3, and glucose 135, calcium 9.1. TSH 0.9. White count 13.4, hemoglobin 9.8, hematocrit 31.0 with platelet count of 161. ASSESSMENT AND PLAN: 1. End-stage renal disease. The patient apparently is on hemodialysis and received her last dialysis on Saturday as an outpatient. She apparently follows up with Dr. Newton in [place], [place]. The patient presented with significant volume overload with pulmonary edema. We will go ahead and do dialysis today for further fluid removal to hopefully assist with extubation. We will repeat dialysis tomorrow as well and do ultrafiltration as tolerated. The patient has a left radiocephalic fistula with a good thrill. Protect left arm. We will do dialysis here and continue to monitor for improvement in respiratory status. 2. Pulmonary edema. The patient has underlying chronic obstructive pulmonary disease with possible congestive heart failure and history of coronary artery disease. We will do ultrafiltration as tolerated with dialysis. Continue to monitor with primary team, as well as ICU. 3. Left bundle branch block. The patient has findings of left bundle branch block on EKG. It is unknown if this is new or old. She is being followed with cardiology here in consultation. Her initial troponin values were negative. Continue to monitor. 4. Hypertension. The patient had initial blood pressure of 200/83; however, this was at the time where she presented with dyspnea and was subsequently intubated. At this point, her blood pressure is improved to the 110s/60s now. Continue with home blood pressure medications and ultrafiltration as tolerated with dialysis. 5. Leukocytosis. The patient with mildly elevated white count of 16. She was started on vancomycin and Zosyn. Continue renal dose and monitor closely. 6. Insulin-dependent diabetes. Continue to monitor with insulin sliding scale. 7. Hypothyroidism. Continue with Synthroid. MD FAISAL Wagner/JENI , 10:38 AM , 11:12 AM MARCY
--- NOTE | 2017-10-27 11:29 | US ---
EXAM DATE: 10/27/2017 11:08 AM EDT AGE/SEX: 89 years / Female INDICATIONS: Bilateral leg swelling. CLINICAL DATA: This is the patient's initial encounter. Patient reports that signs and symptoms have been present for 1 day and indicates a pain score of Nonresponsive. MEDICAL/SURGICAL HISTORY: . Atrial fibrillation. Coronary artery disease. Diabetes. End stage r enal failure. Obesity. . Coronary artery stent. COMPARISON: No prior exams available for comparison. TECHNIQUE: Venous ultrasound of both lower extremities was performed from the inguinal ligament to t he proximal calf. Real-time, color Doppler and spectral tracing, compression and augmentation techni ques were used. FINDINGS: Right Leg: Normal compression of the deep venous system from the inguinal region to the proximal angela f. No echogenic clot is seen. Normal response of the venous system to augmentation and respiration. Left Leg: Normal compression of the deep venous system from the inguinal region to the proximal calf . No echogenic clot is seen. Normal response of the venous system to augmentation and respiration. Other: None. CONCLUSION: 1. The study is negative for bilateral lower extremity deep venous thrombosis. Electronically signed by: Shane Ramirez MD 10/27/2017 11:27 AM EDT
--- NOTE | 2017-10-27 11:51 | MB ---
cc: Dionisio Keene MD DATE: 10/27/2017 REASON FOR CONSULTATION: Left bundle branch block, respiratory failure. HISTORY OF PRESENT ILLNESS: History is unobtainable from the patient who is intubated and sedated. History is obtained from electronic medical records. She is an elderly, white female with a history of coronary artery disease, status post percutaneous coronary intervention last year in [place], history of diabetes, hypertension, end-stage renal disease, CVA, who while driving home from [place] developed increasing shortness of breath. She was brought to the emergency department where she was found to be hypoxemic and in severe respiratory distress, so she was intubated and placed on mechanical ventilation. Workup has suggested congestive heart failure. EKG on admission showed a left bundle branch block without prior EKG for comparison. There has been no definite complaints of recurrent chest pain. Other history is currently unobtainable. PAST MEDICAL HISTORY: As above, with no other details currently available. CURRENT CARDIAC MEDICATIONS: 1. Amlodipine 10 mg p.o. daily. 2. Aspirin 81 mg p.o. daily. 3. Carvedilol 12.5 mg p.o. b.i.d. 4. Furosemide 60 mg p.o. daily. 5. Heparin 5000 units subcutaneously q. 12 hours. 6. Hydralazine 50 mg p.o. t.i.d. 7. Metolazone 5 mg p.o. daily. 8. Pravastatin 80 mg p.o. at bedtime. 9. Brilinta 90 mg p.o. b.i.d. ALLERGIES: ATORVASTATIN, IV CONTRAST, ORAL CONTRAST. FAMILY HISTORY: Noncontributory. SOCIAL HISTORY: The patient apparently is a former smoker without history of alcohol abuse. REVIEW OF SYSTEMS: Currently, unobtainable. PHYSICAL EXAMINATION: VITAL SIGNS: Blood pressure 113/63 with a pulse of 60, respirations 16. GENERAL: She is a well-developed, well-nourished white female, currently intubated and sedated. NECK: Jugular venous pressure is normal. Carotid pulses are 2+ bilaterally and without bruits. CHEST: Reveals clear lungs phelan anteriorly. CARDIAC: She has a regular rhythm and rate without S3, S4, or murmur. ABDOMEN: She has a soft abdomen. Bowel sounds are present. There is no definite hepatosplenomegaly. EXTREMITIES: Reveals no clubbing, cyanosis or edema. LABORATORY DATA: EKG shows sinus rhythm, left bundle branch block, left atrial abnormality. Chest x-ray shows "mild edema pattern." LABORATORY DATA: Includes potassium 3.5, BUN 44, creatinine 3.07. Troponin 0.05, CK 148, CK-MB 6.2. INR 1.1. IMPRESSION: Respiratory failure, possible congestive heart failure in this elderly white female with a history of coronary artery disease, apparently status post percutaneous coronary intervention last year, history of diabetes, hypertension, hyperlipidemia, end-stage renal disease, CVA. I have been asked to see the patient for left bundle branch block. The chronicity of her left bundle branch block is unclear, as she has no old EKGs for comparison. Overall, there is no evidence for acute coronary syndrome. Cardiac enzymes are basically negative for myocardial infarction. Chest x-ray, clinical presentation, laboratory data including an elevated brain natriuretic peptide level, all suggest the possibility of acute congestive heart failure. RECOMMENDATIONS: 1. Continue to try to wean ventilatory support. 2. Consider mild diuresis. 3. Continue her comprehensive cardiac medical regimen. 4. Await her 2D echo. 5. Obtain further clinical history once the patient has been extubated and is able to communicate. Dionisio Keene MD G[facility]/TL , 11:03 AM , 11:50 AM [email or web address]
--- NOTE | 2017-10-27 12:06 | P.DIET ---
Nutritional Evaluation Nutrition consult regarding: Tube Feeding Objective - Diagnosis Respiratory Distress - Objective % IBW: 130 Body Weight Used for Calculations: Upper end of IBW Energy Needs - Lower Range (kCal/kg): 25 Energy Needs - Upper Range (kCal/kg): 30 Lower Limit kCal/kg (kCals): 1,443 Upper Limit kCal/kg (kCals): 1,731 Lower Limit Protein Factor (Grams per Kg): 1.2 Upper Limit Protein Factor (Grams per Kg): 1.5 Lower Protein Needs (Protein): 69 Upper Protein Needs (Protein): 87 Dietitian Reviewed in Medical Record: Current diet, Curent medications, Intake & Output, Labs, Medical history Diet Order: TF only Objective Comments: Nutrition needs based on wt of 57.7kg PMH: Afib, CAD s/p stents, ESRD, Obesity Labs include: Glu 142, Cr 3.07, Alk Phos 164 Meds include: Lasix, Fentanyl, Propofol, Lactulose Last HD 10/25 Assessment Assessment: Pt at nutritional risk r/t the need for a TF for nutrition support. Pt intubated and sedated on propofol/fentanyl. Nutritional needs as stated above. TF Nepro with goal rate of 40 ml/hr will provide 1728 kcals, 78 gms protein and 698 mls free water. This is adequate to meet pt's nutritional needs at this time. Propofol provides extra kcals when running. Will monitor TF tolerance, clinical course. Recommendations: TF Nepro with goal rate 40 ml/hr Dietitian following Dietitian to Monitor: Lab values, Tube feeding tolerance, Weight change, Medical course
[2017-10-27] MEDS ORDERED: fentaNYL 10 mcg/mL Premix Drip 2,500 MCG/250 ML BAG IV.SIG PRN (13:03)
[2017-10-27] MEDS: Propofol 1000 mg/100 ml Inj 1,000 MG/100 ML BOTTLE IV.CONT PRN (13:09)
[2017-10-27] MEDS: Albumin Human 25% Inj 100 ML IV.SIG PRN ×2 (14:50→14:52)
[2017-10-27 15:28] LABS: Hematocrit 31.6 % (35.0-46.0); Hemoglobin 9.9 gm/dL (11.6-15.3); Mean Corpuscular HGB Conc 31.4 % (32.0-36.0); Mean Corpuscular Hemoglobin 26.3 pg (27.0-34.0); Mean Corpuscular Volume 83.8 fL (80.0-100.0); Mean Platelet Volume 11.1 fL (7.0-11.0); Platelet Count 162 th/mm3 (150-450); Red Blood Count 3.77 mil/mm3 (4.00-5.30); Red Cell Distribution Width 18.5 % (11.6-17.2)
[2017-10-27 15:43] LABS: Alanine Aminotransferase 23 U/L (10-53); Albumin 2.9 g/dL (3.4-5.0); Anion Gap 13 meq/L (5-15); Aspartate Aminotransferase 16 U/L (15-37); Blood Urea Nitrogen 43 mg/dL (7-18); Carbon Dioxide 21.4 meq/L (21.0-32.0); Chloride 106 meq/L (98-107); Glomerular Filtration Rate 14 mL/min (>89); Glucose,Random 173 mg/dL (74-106); Phosphorus 3.9 mg/dL (2.5-4.9); Potassium 3.6 meq/L (3.5-5.1); Sodium 140 meq/L (136-145)
[2017-10-27 15:45] LABS: Alkaline Phosphatase 149 U/L (45-117); Total Protein 6.5 g/dL (6.4-8.2)
--- NOTE | 2017-10-27 18:32 | ECHRPT ---
Indication: SHORTNESS OF BREATH CONCLUSIONS Mild LV enlargement. Mild concentric left ventricular hypertrophy. The left ventricular systolic function is moderately reduced with an estimated ejection fraction in the range of 30-35%. There is diffuse global hypokinesis with anteroseptal hypokinesis. The left atrial size is mildly dilated. The right atrial size is mildly dilated. Mild mitral valve regurgitation. Aortic valve sclerosis is present. Mild aortic valve regurgitation. There is mild tricuspid valve regurgitation. The estimated pulmonary arterial pressure is 54 mmHg. Mild pulmonary valve regurgitation. Trivial pericardial effusion. A right sided pleural effusion is present. BP: / HR: Rhythm: Sinus MEASUREMENTS (Male / Female) Normal Values Technical Quality:Fair 2D ECHO LV Diastolic Diameter PLAX 5.2 cm 4.2 - 5.9 / 3.9 - 5.3 cm LV Systolic Diameter PLAX 4.3 cm IVS Diastolic Thickness 1.2 cm 0.6 - 1.0 / 0.6 - 0.9 cm LVPW Diastolic Thickness 1.2 cm 0.6 - 1.0 / 0.6 - 0.9 cm LV Relative Wall Thickness 0.5 RV Internal Dim ED PLAX 1.8 cm LVOT Diameter 1.9 cm Aortic Root Diameter 2.7 cm LA Systolic Diameter LX 4.0 cm 3.0 - 4.0 / 2.7 - 3.8 cm M-MODE AV Cusp Separation MM 1.8 cm DOPPLER AV Peak Velocity 190.0 cm/s AV Peak Gradient 14.4 mmHg AV Mean Gradient 7.0 mmHg AV Velocity Time Integral 40.3 cm AI Peak Velocity 360.0 cm/s AI Peak Gradient 51.8 mmHg AI Pressure Half Time 434.5 ms LVOT Peak Velocity 83.7 cm/s LVOT Peak Gradient 2.8 mmHg LVOT Velocity Time Integral 17.2 cm AV Area Cont Eq vti 1.2 cm AV Area Cont Eq pk 1.2 cm Mitral E Point Velocity 147.0 cm/s Mitral A Point Velocity 153.0 cm/s Mitral E to A Ratio 1.0 LV E' Lateral Velocity 5.3 cm/s Mitral E to LV E' Lateral Ratio 27.9 LV E' Septal Velocity 3.3 cm/s Mitral E to LV E' Septal Ratio 44.4 TR Peak Velocity 331.0 cm/s TR Peak Gradient 43.8 mmHg Right Atrial Pressure 10.0 mmHg Pulmonary Artery Systolic Pressu 53.8 mmHg Right Ventricular Systolic Press 53.8 mmHg PV Peak Velocity 55.6 cm/s PV Peak Gradient 1.2 mmHg FINDINGS LEFT VENTRICLE Mild LV enlargement. Mild concentric left ventricular hypertrophy. The left ventricular systolic function is moderately reduced with an estimated ejection fraction in the range of 30-35%. There is diffuse global hypokinesis with anteroseptal hypokinesis. RIGHT VENTRICLE Normal right ventricular size and systolic function. LEFT ATRIUM The left atrial size is mildly dilated. RIGHT ATRIUM The right atrial size is mildly dilated. ATRIAL SEPTUM No atrial level shunt is demonstrated by color flow Doppler interrogation. AORTA The aortic root and proximal ascending aorta are normal in size on limited imaging. MITRAL VALVE Mild mitral valve regurgitation. AORTIC VALVE Aortic valve sclerosis is present. Mild aortic valve regurgitation. TRICUSPID VALVE There is mild tricuspid valve regurgitation. The estimated pulmonary arterial pressure is 53.8 mmHg. PULMONARY VALVE Mild pulmonary valve regurgitation. VESSELS The inferior vena cava is normal in size. PERICARDIUM Trivial pericardial effusion. A right sided pleural effusion is present. Herve Harris MD, FACC (Electronically Signed) Final Date:27 October 2017 18:31
[2017-10-28] MEDS: Heparin - SQ 10,000 UNITS/ML Vial SQ SCH ×2 (00:53→11:42)
[2017-10-28] MEDS: Oral Hygiene Kit OROPHARYNG SCH ×4 (00:53→18:28)
[2017-10-28] MEDS: Insulin NovoLIN Regular Correctional Sugar Inj SQ SCH ×6 (00:56→21:18)
[2017-10-28] MEDS: Chlorhexidine Gluconate 2% 1 Pack (2 Cloths) TOPICAL SCH (05:49)
[2017-10-28] MEDS: Levothyroxine 125 MCG Tablet PO SCH (05:54)
[2017-10-28 06:55] LABS: Baso # (Auto) 0.1 th/mm3 (0.0-0.2); Baso % (Auto) 0.5 % (0.0-2.0); Eos # (Auto) 0.2 th/mm3 (0.0-0.4); Eos % (Auto) 1.3 % (0.0-4.0); Hematocrit 26.5 % (35.0-46.0); Hemoglobin 8.5 gm/dL (11.6-15.3); Lymph # (Auto) 1.2 th/mm3 (1.0-4.8); Lymph % (Auto) 8.8 % (9.0-44.0); Mean Corpuscular HGB Conc 31.9 % (32.0-36.0); Mean Corpuscular Hemoglobin 26.6 pg (27.0-34.0); Mean Corpuscular Volume 83.4 fL (80.0-100.0); Mean Platelet Volume 10.7 fL (7.0-11.0); Mono # (Auto) 1.4 th/mm3 (0.0-0.9); Mono % (Auto) 10.3 % (0.0-8.0); Neut # (Auto) 10.6 th/mm3 (1.8-7.7); Neut % (Auto) 79.1 % (16.0-70.0); Platelet Count 145 th/mm3 (150-450); Red Blood Count 3.17 mil/mm3 (4.00-5.30); Red Cell Distribution Width 18.8 % (11.6-17.2); White Blood Count 13.4 th/mm3 (4.0-11.0)
--- NOTE | 2017-10-28 07:15 | P.PNCC ---
Subjective Subjective Remarks/Hospital Course: female with history of coronary artery disease with prior stents approximately 1 year ago, hypertension, diabetes mellitus on home insulin pump, end-stage renal disease on hemodialysis Saturday/Saturday/Saturday for the last year, former smoker ( also states "h/o [place] or a stroke" but indicates no neuro deficits. She lives in [place] and she and her were driving home from [place] when she developed worsening SOB. Her states that she has difficulty with SOB that has been slowly progressing over months and that she "has good days and bad days" but her mobility is often limited by dyspnea while using her walker to walk a ~3-5 yards. She is not on home O2. She has been short of breath throughout the day today and thus had increased use of her nebulizer. Has chronic cough in the morning, not changed from baseline. No fever, sputum production, hemoptysis, chest pain, pleuritic symptoms, leg swelling or calf pain. She was in the car this evening when SOB worsened and her called 911. Sats were 77% when [facility] arrived and she had poor air movement bilaterally so she was given a DuoNeb. After the neb she reportedly had bibasilar Rales and so she was placed on CPAP however on CPAP her respiratory condition continued to worsen and she became less responsive. She was intubated in the field after receiving etomidate 20 mg IV and Versed 4 mg IV. [facility]AC also administered Lasix 70 mg IV. A Grissom catheter has been inserted in the ED and she has 300 of light yellow urine output. Chest x-ray shows satisfactory endotracheal tube and OG tube position. She has pulmonary edema. Her BP was 200/83 on arrival but has normalized after sedation with propofol. She has received vancomycin and Zosyn in the emergency department. EKG showed LBBB and there was no prior EKG for comparison ( unsure if pre-existing) . Troponin 0.03. Dr. Bullard discussed with Dr. Keene who recommended routine cardiology consultation. Last hemodialysis was performed in [place] on Saturday, 10/25. 10/27 Patient is sedated with Diprivan and intubated. Afebrile. 10/28: HD yesterday with 3L fluid removed. On fentanyl gtt, wakes up follows some commands. Will start CPAP trials Objective Vital Signs / I&O: Vital Signs 10/27/17 07:15 10/27/17 07:30 10/27/17 07:45 Temperature Pulse Rate 61 60 60 Respiratory Rate 16 16 16 Blood Pressure 159/74 H 155/71 H 157/71 H Pulse Oximetry 100 100 100 10/27/17 08:00 10/27/17 08:05 10/27/17 08:15 Temperature 99.4 F Pulse Rate 59 L 61 60 Respiratory Rate 22 26 H 17 Blood Pressure 108/70 113/63 Pulse Oximetry 100 100 100 10/27/17 08:30 10/27/17 08:32 10/27/17 08:45 Temperature Pulse Rate 63 62 Respiratory Rate 16 16 16 Blood Pressure 116/56 L 111/53 L Pulse Oximetry 100 100 100 10/27/17 09:00 10/27/17 09:15 10/27/17 09:30 Temperature Pulse Rate 66 65 69 Respiratory Rate 23 16 16 Blood Pressure 106/51 L 103/56 L 114/55 L Pulse Oximetry 100 100 100 10/27/17 09:45 10/27/17 10:00 10/27/17 10:17 Temperature Pulse Rate 66 72 67 Respiratory Rate 16 22 18 Blood Pressure 112/54 L 113/63 82/59 L Pulse Oximetry 100 100 100 10/27/17 10:31 10/27/17 10:45 10/27/17 11:00 Temperature Pulse Rate 69 70 70 Respiratory Rate 17 22 17 Blood Pressure 137/57 L 118/48 L 112/48 L Pulse Oximetry 100 100 100 10/27/17 11:01 10/27/17 11:15 10/27/17 11:30 Temperature Pulse Rate 72 76 74 Respiratory Rate 28 H 24 16 Blood Pressure 118/53 L 122/57 L Pulse Oximetry 100 99 100 10/27/17 11:46 10/27/17 12:00 10/27/17 12:15 Temperature 98.8 F Pulse Rate 70 69 82 Respiratory Rate 26 H 16 19 Blood Pressure 140/62 124/58 L 119/53 L Pulse Oximetry 100 100 100 10/27/17 12:31 10/27/17 12:45 10/27/17 13:00 Temperature Pulse Rate 68 68 63 Respiratory Rate 18 19 16 Blood Pressure 104/49 L 85/46 L 69/36 L Pulse Oximetry 100 100 100 10/27/17 13:13 10/27/17 13:14 10/27/17 13:15 Temperature Pulse Rate 68 68 68 Respiratory Rate 23 22 23 Blood Pressure 66/29 L 128/51 L 107/46 L Pulse Oximetry 100 100 99 10/27/17 13:30 10/27/17 13:45 10/27/17 14:00 Temperature Pulse Rate 68 66 66 Respiratory Rate 17 5 L 0 L Blood Pressure 132/54 L 127/46 L 107/41 L Pulse Oximetry 100 100 99 10/27/17 14:01 10/27/17 14:16 10/27/17 14:27 Temperature Pulse Rate 66 63 62 Respiratory Rate 0 L 0 L 0 L Blood Pressure 107/41 L 65/40 L 61/33 L Pulse Oximetry 99 99 99 10/27/17 14:30 10/27/17 14:39 10/27/17 14:45 Temperature Pulse Rate 63 72 75 Respiratory Rate 1 L 20 22 Blood Pressure 72/37 L 121/56 L 121/54 L Pulse Oximetry 99 100 100 10/27/17 14:58 10/27/17 14:59 10/27/17 15:00 Temperature Pulse Rate 75 76 Respiratory Rate 23 23 26 H Blood Pressure 118/58 L Pulse Oximetry 100 10/27/17 15:15 10/27/17 15:35 10/27/17 15:45 Temperature Pulse Rate 72 62 61 Respiratory Rate 16 16 16 Blood Pressure 135/63 83/37 L 98/42 L Pulse Oximetry 100 100 100 10/27/17 16:00 10/27/17 16:01 10/27/17 16:10 Temperature 98.8 F Pulse Rate 63 63 64 Respiratory Rate 8 L 8 L Blood Pressure 128/48 L Pulse Oximetry 100 100 10/27/17 16:15 10/27/17 16:30 10/27/17 16:45 Temperature Pulse Rate 63 64 64 Respiratory Rate 10 L 10 L 10 L Blood Pressure 132/46 L 129/58 L 128/51 L Pulse Oximetry 100 100 100 10/27/17 17:00 10/27/17 17:15 10/27/17 17:31 Temperature Pulse Rate 63 65 64 Respiratory Rate 11 L 15 16 Blood Pressure 127/51 L 134/54 L 148/56 H Pulse Oximetry 100 100 100 10/27/17 17:45 10/27/17 18:00 10/27/17 18:10 Temperature Pulse Rate 65 66 66 Respiratory Rate 16 16 Blood Pressure 150/57 H 159/58 H Pulse Oximetry 100 100 10/27/17 18:16 10/27/17 19:00 10/27/17 19:45 Temperature 99.8 F H Pulse Rate 67 65 68 Respiratory Rate 16 16 Blood Pressure 164/60 H Pulse Oximetry 100 100 10/27/17 20:00 10/27/17 20:16 10/27/17 21:00 Temperature 99.2 F 99.2 F Pulse Rate 71 66 Respiratory Rate 16 16 Blood Pressure 140/53 L 131/51 L Pulse Oximetry 100 100 99 10/27/17 22:00 10/27/17 23:00 10/27/17 23:44 Temperature 99.6 F 99.9 F H Pulse Rate 85 63 Respiratory Rate 30 H 16 Blood Pressure 131/51 L 151/57 H Pulse Oximetry 99 100 100 10/28/17 00:00 10/28/17 01:00 10/28/17 02:00 Temperature 99.9 F H 99.9 F H 100.0 F H Pulse Rate 62 61 60 Respiratory Rate 16 Blood Pressure 135/53 L 155/56 H 152/60 H Pulse Oximetry 100 100 100 10/28/17 03:00 10/28/17 03:48 10/28/17 04:00 Temperature 99.9 F H 99.1 F Pulse Rate 60 60 Respiratory Rate 16 16 16 Blood Pressure 158/61 H 131/71 Pulse Oximetry 100 100 100 10/28/17 05:00 10/28/17 06:00 10/28/17 07:00 Temperature 99.1 F 99.1 F 99.1 F Pulse Rate 61 60 60 Respiratory Rate 16 16 16 Blood Pressure 163/63 H 161/65 H 161/65 H Pulse Oximetry 100 100 100 Intake & Output 10/27/17 10/28/17 10/28/17 18:59 06:59 18:59 Intake Total 570 / 570 120 / 120 Output Total 4425 / 4425 500 / 500 Balance -3855 / -3855 -380 / -380 Intake: IV 350 / 350 Flexbumin 25% Inj 100 ML @ 60 100 / 100 mls/hr IV.SIG WITH DIALYSIS PRN Rx#:[id number] Zosyn 3.375 GM Premix 50 ML @ 50 / 50 100 mls/hr IV.SIG ONCE ONE Rx#: [id number] Vancomycin Inj 1 gm In 200 ml @ 200 / 200 200 mls/hr IV.SIG ACCOUNTS RECEIVABLE [facility]OUNTANT [facility] Rx#:[id number] Oral 0 / 0 0 / 0 Tube Feeding 20 / 20 120 / 120 Tube Irrigant 200 / 200 Output: Urine 650 / 650 Stool 0 / 0 Hemodialysis Amount 3000 / 3000 Urine Amount (Catheter) 700 / 700 500 / 500 Indwelling Temp Sensing 700 / 700 Catheter Indwelling Urethral Catheter 500 / 500 Gastric Drainage 75 / 75 Orogastric Tube 75 / 75 Other: # Bowel Movements 0 0 Result Diagrams: 10/28/17 06:33 10/27/17 13:39 Objective Remarks: GENERAL: Patient is intubated and sedated with fentanyl. SKIN: Warm and dry. HEAD: Normocephalic. EYES: No scleral icterus. No injection or drainage. NECK: Supple, trachea midline. No JVD or lymphadenopathy. CARDIOVASCULAR: Regular rate and rhythm without murmurs, gallops, or rubs. RESPIRATORY: Breath sounds equal bilaterally. No accessory muscle use. Clear to auscultation anteriorly GASTROINTESTINAL: Abdomen soft, non-tender, nondistended. MUSCULOSKELETAL: No cyanosis, or edema. Neuro: Sedated. Wakes up easily, follows commands Assessment and Plan - Problem List (1) Respiratory failure Code(s): J96.90 - Respiratory failure, unspecified, unspecified whether with hypoxia or hypercapnia Status: Acute (2) LBBB (left bundle branch block) Code(s): I44.7 - Left bundle-branch block, unspecified Status: Chronic Onset Date: Unknown (3) CHF (congestive heart failure) Code(s): I50.9 - Heart failure, unspecified Status: Acute (4) Pulmonary edema Code(s): J81.1 - Chronic pulmonary edema Status: Acute (5) IDDM (insulin dependent diabetes mellitus) Code(s): E11.9 - Type 2 diabetes mellitus without complications; Z79.4 - intermediate manager (current) use of insulin Status: Chronic (6) Hypothyroid Code(s): E03.9 - Hypothyroidism, unspecified Status: Chronic (7) ESRD (end stage renal disease) on dialysis Code(s): N18.6 - End stage renal disease; Z99.2 - Dependence on renal dialysis Status: Chronic (8) Anemia Code(s): D64.9 - Anemia, unspecified Status: Chronic (9) Leukocytosis Code(s): D72.829 - Elevated white blood cell count, unspecified Status: Acute (10) CAD (coronary artery disease) Code(s): I25.10 - Atherosclerotic heart disease of [place] coronary artery without angina pectoris Status: Chronic (11) Stented coronary artery Code(s): Z95.5 - Presence of coronary angioplasty implant and graft Status: Chronic (12) HTN (hypertension) Code(s): I10 - Essential (primary) hypertension Status: Chronic (13) HLD (hyperlipidemia) Code(s): E78.5 - Hyperlipidemia, unspecified Status: Chronic - Assessment and Plan Plan: NEURO: Fentanyl for sedation, target RASS 0 Hold sedation for weaning trial RESP: Acute respiratory failure Pulmonary edema Duoneb every 6 hours. Albuterol q2 hours as needed. Vent Bundle. CPAP trials today and extubate if tolerated. 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 CV: Pulmonary edema Hypertension Hyperlipidemia Coronary artery disease with prior stents (reportedly about a year ago) Left bundle branch block HD with 3L fluid removal 10/27 Significant hypertension on presentation is now normalized on propofol drip. Follow-up troponins negative 2D echo, Cardiology consult pending Continue aspirin, Brilinta, statin, beta-jeff GI: OG tube in place. In satisfactory position on chest x-ray. Low intermittent wall suction. Bowel regimen. FEN/RENAL: End-stage renal disease on HD She does still make some urine. A Grissom catheter has been placed in the ED which will continue for now to monitor intake and output. Lasix 70 mg IV was provided per [facility]. 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 Newton". She has been on HD ~ 1year. Has LUE fistula, Last HD 10/25. ID: Leukocytosis She received Zosyn and vancomycin in the emergency department. Blood cultures, sputum and urine culture were sent. Blood cx neg to date HEME: Chronic anemia Monitor CBC ENDO: Insulin-dependent diabetes mellitus Hold insulin pump. Insulin drip algorithm #3. Hypothyroidism Follow-up TSH, resume Synthroid if appropriate PROPH: Heparin 5000 units subcu every 12 hours and SCDs for DVT prophylaxis. Famotidine 10 mg IV every 12 hours for stress ulcer prophylaxis. ACCESS: Peripheral IV providing adequate access at this time. Full code Level 3 (3) CHF (congestive heart failure) Qualifiers: Heart failure type: unspecified Heart failure chronicity: unspecified Qualified Code(s): I50.9 - Heart failure, unspecified (4) Pulmonary edema Qualifiers: Chronicity: acute Qualified Code(s): J81.0 - Acute pulmonary edema
[2017-10-28 07:24] LABS: Albumin 2.6 g/dL (3.4-5.0); Magnesium 1.8 mg/dL (1.5-2.5); Phosphorus 2.5 mg/dL (2.5-4.9); Total Protein 5.4 g/dL (6.4-8.2)
[2017-10-28 07:40] LABS: Potassium 2.7 meq/L (3.5-5.1)
[2017-10-28] MEDS: hydrALAZINE 50 MG Tablet PO SCH ×3 (08:20→21:14)
[2017-10-28] MEDS: amLODIPine 10 MG Tablet PO SCH (08:21)
[2017-10-28] MEDS: Senna/Docusate Sodium 8.6/50 MG Tablet PO SCH ×2 (08:22→21:15)
[2017-10-28] MEDS: Carvedilol 12.5 MG Tablet PO SCH ×2 (08:22→21:15)
[2017-10-28] MEDS: Famotidine PF Inj 20 MG/2 ML Vial IV.PUSH SCH ×2 (08:22→21:15)
[2017-10-28] MEDS: Furosemide 20 MG Tablet PO SCH (08:22)
[2017-10-28] MEDS: metOLazone 5 MG Tablet PO SCH (08:23)
[2017-10-28] MEDS: Chlorhexidine 0.12% Oral Kit 15 ML UDC OROPHARYNG SCH ×2 (08:24→21:13)
--- NOTE | 2017-10-28 08:45 | P.PNCA ---
Subjective Interval history: Intubated. Awake. Denies CP, dizziness, abdominal pain. Complains of dyspnea. Physical Exam Vital signs: Vital Signs 10/27/17 08:45 10/27/17 09:00 10/27/17 09:15 Temperature Pulse Rate 62 66 65 Respiratory Rate 16 23 16 Blood Pressure 111/53 L 106/51 L 103/56 L Pulse Oximetry 100 100 100 10/27/17 09:30 10/27/17 09:45 10/27/17 10:00 Temperature Pulse Rate 69 66 72 Respiratory Rate 16 16 22 Blood Pressure 114/55 L 112/54 L 113/63 Pulse Oximetry 100 100 100 10/27/17 10:17 10/27/17 10:31 10/27/17 10:45 Temperature Pulse Rate 67 69 70 Respiratory Rate 18 17 22 Blood Pressure 82/59 L 137/57 L 118/48 L Pulse Oximetry 100 100 100 10/27/17 11:00 10/27/17 11:01 10/27/17 11:15 Temperature Pulse Rate 70 72 76 Respiratory Rate 17 28 H 24 Blood Pressure 112/48 L 118/53 L Pulse Oximetry 100 100 99 10/27/17 11:30 10/27/17 11:46 10/27/17 12:00 Temperature Pulse Rate 74 70 69 Respiratory Rate 16 26 H 16 Blood Pressure 122/57 L 140/62 124/58 L Pulse Oximetry 100 100 100 10/27/17 12:15 10/27/17 12:31 10/27/17 12:45 Temperature 98.8 F Pulse Rate 82 68 68 Respiratory Rate 19 18 19 Blood Pressure 119/53 L 104/49 L 85/46 L Pulse Oximetry 100 100 100 10/27/17 13:00 10/27/17 13:13 10/27/17 13:14 Temperature Pulse Rate 63 68 68 Respiratory Rate 16 23 22 Blood Pressure 69/36 L 66/29 L 128/51 L Pulse Oximetry 100 100 100 10/27/17 13:15 10/27/17 13:30 10/27/17 13:45 Temperature Pulse Rate 68 68 66 Respiratory Rate 23 17 5 L Blood Pressure 107/46 L 132/54 L 127/46 L Pulse Oximetry 99 100 100 10/27/17 14:00 10/27/17 14:01 10/27/17 14:16 Temperature Pulse Rate 66 66 63 Respiratory Rate 0 L 0 L 0 L Blood Pressure 107/41 L 107/41 L 65/40 L Pulse Oximetry 99 99 99 10/27/17 14:27 10/27/17 14:30 10/27/17 14:39 Temperature Pulse Rate 62 63 72 Respiratory Rate 0 L 1 L 20 Blood Pressure 61/33 L 72/37 L 121/56 L Pulse Oximetry 99 99 100 10/27/17 14:45 10/27/17 14:58 10/27/17 14:59 Temperature Pulse Rate 75 75 Respiratory Rate 22 23 23 Blood Pressure 121/54 L Pulse Oximetry 100 10/27/17 15:00 10/27/17 15:15 10/27/17 15:35 Temperature Pulse Rate 76 72 62 Respiratory Rate 26 H 16 16 Blood Pressure 118/58 L 135/63 83/37 L Pulse Oximetry 100 100 100 10/27/17 15:45 10/27/17 16:00 10/27/17 16:01 Temperature 98.8 F Pulse Rate 61 63 63 Respiratory Rate 16 8 L 8 L Blood Pressure 98/42 L 128/48 L Pulse Oximetry 100 100 100 10/27/17 16:10 10/27/17 16:15 10/27/17 16:30 Temperature Pulse Rate 64 63 64 Respiratory Rate 10 L 10 L Blood Pressure 132/46 L 129/58 L Pulse Oximetry 100 100 10/27/17 16:45 10/27/17 17:00 10/27/17 17:15 Temperature Pulse Rate 64 63 65 Respiratory Rate 10 L 11 L 15 Blood Pressure 128/51 L 127/51 L 134/54 L Pulse Oximetry 100 100 100 10/27/17 17:31 10/27/17 17:45 10/27/17 18:00 Temperature Pulse Rate 64 65 66 Respiratory Rate 16 16 16 Blood Pressure 148/56 H 150/57 H 159/58 H Pulse Oximetry 100 100 100 10/27/17 18:10 10/27/17 18:16 10/27/17 19:00 Temperature 99.8 F H Pulse Rate 66 67 65 Respiratory Rate 16 16 Blood Pressure 164/60 H Pulse Oximetry 100 100 10/27/17 19:45 10/27/17 20:00 10/27/17 20:16 Temperature 99.2 F Pulse Rate 68 71 Respiratory Rate 16 16 Blood Pressure 140/53 L Pulse Oximetry 100 100 10/27/17 21:00 10/27/17 22:00 10/27/17 23:00 Temperature 99.2 F 99.6 F 99.9 F H Pulse Rate 66 85 63 Respiratory Rate 30 H Blood Pressure 131/51 L 131/51 L 151/57 H Pulse Oximetry 99 99 100 10/27/17 23:44 10/28/17 00:00 10/28/17 01:00 Temperature 99.9 F H 99.9 F H Pulse Rate 62 61 Respiratory Rate 16 Blood Pressure 135/53 L 155/56 H Pulse Oximetry 100 100 100 10/28/17 02:00 10/28/17 03:00 10/28/17 03:48 Temperature 100.0 F H 99.9 F H Pulse Rate 60 60 Respiratory Rate 16 16 16 Blood Pressure 152/60 H 158/61 H Pulse Oximetry 100 100 100 10/28/17 04:00 10/28/17 05:00 10/28/17 06:00 Temperature 99.1 F 99.1 F 99.1 F Pulse Rate 60 61 60 Respiratory Rate 16 16 16 Blood Pressure 131/71 163/63 H 161/65 H Pulse Oximetry 100 100 100 10/28/17 07:00 10/28/17 07:47 Temperature 99.1 F Pulse Rate 60 66 Respiratory Rate 16 12 Blood Pressure 161/65 H Pulse Oximetry 100 99 Intake & Output 10/27/17 10/28/17 10/28/17 18:59 06:59 18:59 Intake Total 570 / 570 120 / 120 Output Total 4425 / 4425 500 / 500 Balance -3855 / -3855 -380 / -380 Intake: IV 350 / 350 Flexbumin 25% Inj 100 ML @ 60 100 / 100 mls/hr IV.SIG WITH DIALYSIS PRN Rx#:[id number] Zosyn 3.375 GM Premix 50 ML @ 50 / 50 100 mls/hr IV.SIG ONCE ONE Rx#: [id number] Vancomycin Inj 1 gm In 200 ml @ 200 / 200 200 mls/hr IV.SIG 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 - Routine Cardiovascular Exam Present: RRR, S1, S2. Absent: murmur, gallop - Routine Abdominal Exam Present: soft, normoactive bowel sounds. Absent: tenderness, organomegaly - Routine Extremities Exam Absent: cyanosis, clubbing, edema - Urinary Catheter Management Indwelling Urethral Catheter Cath placed during this visit: yes Reason for continuing: Hourly intake/output Insertion date: 10/26/17 Insertion time: 00:29 Indwelling Temp Sensing Catheter Cath placed during this visit: no Assessment and Plan - Assessment (1) CAD (coronary artery disease) Code(s): I25.10 - Atherosclerotic heart disease of [place] coronary artery without angina pectoris Status: Chronic Plan: Stable overnight. No definite evidence for acute coronary syndrome. Recommend continue Brilinta, baby aspirin, beta jeff. (2) Ischemic cardiomyopathy Code(s): I25.5 - Ischemic cardiomyopathy Status: Chronic Plan: Echo shows EF ~30%, global hypokinesis more pronounced in the LAD coronary territory. Suspect her respiratory failure predominantly due to acute CHF. Improving. Consider repeat CXR, consider additional diuresis. Continue beta jeff. Add ABRAHAM-I. (3) CHF (congestive heart failure) Code(s): I50.9 - Heart failure, unspecified Status: Acute Plan: Respiratory status improving. EF 30% on echo. Continue beta jeff, add ABRAHAM- I. Consider repeat CXR, consider additional diuresis. - Plan Code Status: full code (1) CAD (coronary artery disease) Qualifiers: Coronary Disease-Associated Artery/Lesion type: [place] artery [place] vs. transplanted heart: [place] heart Associated angina: without angina Qualified Code(s): I25.10 - Atherosclerotic heart disease of [place] coronary artery without angina pectoris (3) CHF (congestive heart failure) Qualifiers: Heart failure type: systolic Heart failure chronicity: acute Qualified Code( s): I50.21 - Acute systolic (congestive) heart failure
--- NOTE | 2017-10-28 09:47 | ECG ---
Date Performed: 10/27/2017 Time Performed: 12:48:11 PTAGE: 89 years EKG: Sinus rhythm WITH OCCASIONAL VENTRICULAR PREMATURE COMPLEXES BORDERLINE LEFT AXIS DEVIATION INTRAVENTRICULAR COND UCTION DELAY ABNORMAL ECG Since the PREVIOUS TRACING , no significant change noted PREVIOUS TRACIN10/26/2017 20.46 DOCTOR: Deny Nieves Interpretating Date/Time 10/28/2017 09:45:28
--- NOTE | 2017-10-28 16:45 | P.PNNP ---
Subjective Interval history: Patient is alert, no SOB, now feeling better. Physical Exam Vital signs: Vital Signs 10/27/17 16:45 10/27/17 17:00 10/27/17 17:15 Temperature Pulse Rate 64 63 65 Respiratory Rate 10 L 11 L 15 Blood Pressure 128/51 L 127/51 L 134/54 L Pulse Oximetry 100 100 100 10/27/17 17:31 10/27/17 17:45 10/27/17 18:00 Temperature Pulse Rate 64 65 66 Respiratory Rate 16 16 16 Blood Pressure 148/56 H 150/57 H 159/58 H Pulse Oximetry 100 100 100 10/27/17 18:10 10/27/17 18:16 10/27/17 19:00 Temperature 99.8 F H Pulse Rate 66 67 65 Respiratory Rate 16 16 Blood Pressure 164/60 H Pulse Oximetry 100 100 10/27/17 19:45 10/27/17 20:00 10/27/17 20:16 Temperature 99.2 F Pulse Rate 68 71 Respiratory Rate 16 16 Blood Pressure 140/53 L Pulse Oximetry 100 100 10/27/17 21:00 10/27/17 22:00 10/27/17 23:00 Temperature 99.2 F 99.6 F 99.9 F H Pulse Rate 66 85 63 Respiratory Rate 30 H Blood Pressure 131/51 L 131/51 L 151/57 H Pulse Oximetry 99 99 100 10/27/17 23:44 10/28/17 00:00 10/28/17 01:00 Temperature 99.9 F H 99.9 F H Pulse Rate 62 61 Respiratory Rate 16 Blood Pressure 135/53 L 155/56 H Pulse Oximetry 100 100 100 10/28/17 02:00 10/28/17 03:00 10/28/17 03:48 Temperature 100.0 F H 99.9 F H Pulse Rate 60 60 Respiratory Rate 16 16 16 Blood Pressure 152/60 H 158/61 H Pulse Oximetry 100 100 100 10/28/17 04:00 10/28/17 05:00 10/28/17 06:00 Temperature 99.1 F 99.1 F 99.1 F Pulse Rate 60 61 60 Respiratory Rate 16 16 16 Blood Pressure 131/71 163/63 H 161/65 H Pulse Oximetry 100 100 100 10/28/17 07:00 10/28/17 07:47 10/28/17 08:00 Temperature 99.1 F 98.4 F Pulse Rate 60 66 61 Respiratory Rate 16 12 16 Blood Pressure 161/65 H 166/62 H Pulse Oximetry 100 99 100 10/28/17 10:00 10/28/17 11:18 10/28/17 13:34 Temperature Pulse Rate 66 Respiratory Rate 13 Blood Pressure Pulse Oximetry 100 100 10/28/17 15:21 Temperature Pulse Rate 72 Respiratory Rate 16 Blood Pressure Pulse Oximetry Intake & Output 10/27/17 10/28/17 10/28/17 18:59 06:59 18:59 Intake Total 570 / 570 120 / 120 Output Total 4425 / 4425 500 / 500 Balance -3855 / -3855 -380 / -380 Intake: IV 350 / 350 Flexbumin 25% Inj 100 ML @ 60 100 / 100 mls/hr IV.SIG WITH DIALYSIS PRN Rx#:[id number] Zosyn 3.375 GM Premix 50 ML @ 50 / 50 100 mls/hr IV.SIG ONCE ONE Rx#: [id number] Vancomycin Inj 1 gm In 200 ml @ 200 / 200 200 mls/hr IV.SIG BICYCLE [facility] Rx#:[id number] Oral 0 / 0 0 / 0 Tube Feeding 20 / 20 120 / 120 Tube Irrigant 200 / 200 Output: Urine 650 / 650 Stool 0 / 0 Hemodialysis Amount 3000 / 3000 Urine Amount (Catheter) 700 / 700 500 / 500 Indwelling Temp Sensing 700 / 700 Catheter Indwelling Urethral Catheter 500 / 500 Gastric Drainage 75 / 75 Orogastric Tube 75 / 75 Other: # Bowel Movements 0 0 - Constitutional mild distress - Routine HEENT Exam Head: Present: normocephalic ENT: Present: mucous membranes moist - Routine Neck Exam Present: supple, JVD - Routine Respiratory Exam Present: decreased breath sounds, rales, rhonchi, distant breath sounds, diminished air movement - Routine Cardiovascular Exam Present: S1, S2 - Routine Abdominal Exam Present: soft, normoactive bowel sounds, distended - Routine Extremities Exam Present: edema - Routine Skin Exam Present: intact - Routine Neurological Exam Present: alert - Urinary Catheter Management Indwelling Urethral Catheter Cath placed during this visit: yes Reason for continuing: Hourly intake/output Insertion date: 10/26/17 Insertion time: 00:29 Indwelling Temp Sensing Catheter Cath placed during this visit: no Assessment and Plan - Plan 1. End-stage renal disease. The patient apparently is on hemodialysis and received her last dialysis today, tolerated well. The BP is stable, K was low and replaced. 2. Pulmonary edema. The patient has underlying chronic obstructive pulmonary disease with possible congestive heart failure and history of coronary artery disease. Breathing is better after HD. 3. Left bundle branch block. The patient has findings of left bundle branch block on EKG. It is unknown if this is new or old. She is being followed with cardiology here in consultation. 4. Hypertension. The patient had initial blood pressure of 200/83; however, now it is better. 5. Leukocytosis. The patient with mildly elevated white count of 16. She was started on vancomycin and Zosyn. Continue renal dose and monitor closely. 6. Insulin-dependent diabetes. Continue to monitor with insulin sliding scale. 7. Hypothyroidism. Continue with Synthroid.
[2017-10-28] MEDS: Dextrose 5%/NaCl 0.9% Inj 1,000 ML IV.CONT SCH (19:51)
[2017-10-29] MEDS: fentaNYL Citrate Inj 100 MCG/2 ML Ampul IV PUSH PRN ×2 (00:18→02:47)
[2017-10-29] MEDS: Insulin NovoLIN Regular Correctional Sugar Inj SQ SCH ×6 (00:51→21:11)
[2017-10-29] MEDS: Heparin - SQ 10,000 UNITS/ML Vial SQ SCH ×2 (00:52→18:36)
[2017-10-29] MEDS: Oral Hygiene Kit OROPHARYNG SCH ×3 (00:53→11:27)
[2017-10-29] MEDS: Chlorhexidine Gluconate 2% 1 Pack (2 Cloths) TOPICAL SCH (03:58)
--- NOTE | 2017-10-29 06:18 | XR ---
EXAM DATE: 10/29/2017 5:48 AM EDT AGE/SEX: 72 years / Female INDICATIONS: Short of breath. CLINICAL DATA: This is the patient's subsequent encounter. Patient reports that signs and symptoms h ave been present for 1 week and indicates a pain score of Nonresponsive. MEDICAL/SURGICAL HISTORY: Non-responsive. Non-responsive. COMPARISON: [facility], CHEST 1V SINGLE AP, 10/26/2017. . FINDINGS: NGT has been removed. No significant new focal pleural or parenchymal opacities. Cardiomediastinal co ntours are stable. Remainder of the exam is unchanged. CONCLUSION: 1. Patient has been extubated with NG tube removed. 2. Low lung volumes without acute abnormality. Electronically signed by: Zurdo Garcia MD 10/29/2017 6:17 AM EDT
[2017-10-29] MEDS ORDERED: Haloperidol Inj 5 MG/ML Ampul IV.PUSH PRN (07:19)
--- NOTE | 2017-10-29 07:28 | P.PNCC ---
Subjective Subjective Remarks/Hospital Course: female with history of coronary artery disease with prior stents approximately 1 year ago, hypertension, diabetes mellitus on home insulin pump, end-stage renal disease on hemodialysis Saturday/Saturday/Saturday for the last year, former smoker ( also states "h/o OH or a stroke" but indicates no neuro deficits. She lives in [place] and she and her were driving home from [place] when she developed worsening SOB. Her states that she has difficulty with SOB that has been slowly progressing over months and that she "has good days and bad days" but her mobility is often limited by dyspnea while using her walker to walk a ~3-5 yards. She is not on home O2. She has been short of breath throughout the day today and thus had increased use of her nebulizer. Has chronic cough in the morning, not changed from baseline. No fever, sputum production, hemoptysis, chest pain, pleuritic symptoms, leg swelling or calf pain. She was in the car this evening when SOB worsened and her called 911. Sats were 77% when [facility] arrived and she had poor air movement bilaterally so she was given a DuoNeb. After the neb she reportedly had bibasilar Rales and so she was placed on CPAP however on CPAP her respiratory condition continued to worsen and she became less responsive. She was intubated in the field after receiving etomidate 20 mg IV and Versed 4 mg IV. [facility] also administered Lasix 70 mg IV. A Grissom catheter has been inserted in the ED and she has 300 of light yellow urine output. Chest x-ray shows satisfactory endotracheal tube and OG tube position. She has pulmonary edema. Her BP was 200/83 on arrival but has normalized after sedation with propofol. She has received vancomycin and Zosyn in the emergency department. EKG showed LBBB and there was no prior EKG for comparison ( unsure if pre-existing) . Troponin 0.03. Dr. Bullard discussed with Dr. Keene who recommended routine cardiology consultation. Last hemodialysis was performed in [place] on Saturday, 10/25. 10/27 Patient is sedated with Diprivan and intubated. Afebrile. 10/28: HD yesterday with 3L fluid removed. On fentanyl gtt, wakes up follows some commands. Will start CPAP trials 10/29: Intubated yesterday tolerating well respiratory pena. Hypoglycemic overnight blood sugar was 40, started on D5 infusion. Had hemodialysis yesterday. CMP is pending. Intermittently agitated. Per Dr. Keene note EF about 30% Objective Vital Signs / I&O: Vital Signs 10/28/17 07:47 10/28/17 08:00 10/28/17 10:00 Temperature 98.4 F Pulse Rate 66 61 66 Respiratory Rate 12 16 Blood Pressure 166/62 H Pulse Oximetry 99 100 10/28/17 11:18 10/28/17 12:00 10/28/17 13:34 Temperature 98.8 F Pulse Rate 74 Respiratory Rate 13 20 Blood Pressure 145/60 H Pulse Oximetry 100 100 100 10/28/17 14:00 10/28/17 15:21 10/28/17 16:00 Temperature 98.3 F Pulse Rate 71 72 66 Respiratory Rate 16 22 Blood Pressure 150/53 H Pulse Oximetry 100 10/28/17 18:00 10/28/17 19:56 10/28/17 20:00 Temperature 97.7 F Pulse Rate 69 62 62 Respiratory Rate 15 16 Blood Pressure 121/55 L Pulse Oximetry 100 97 10/28/17 22:00 10/29/17 00:00 10/29/17 02:00 Temperature 98.5 F Pulse Rate 61 62 66 Respiratory Rate 23 Blood Pressure 120/56 L Pulse Oximetry 98 10/29/17 03:32 Temperature Pulse Rate 66 Respiratory Rate 20 Blood Pressure Pulse Oximetry Intake & Output 10/28/17 10/29/17 10/29/17 18:59 06:59 18:59 Intake Total 500 / 500 Output Total 3600 / 3600 Balance -3100 / -3100 Intake: Oral 0 / 0 Tube Feeding 200 / 200 Tube Irrigant 300 / 300 Output: Stool 0 / 0 Hemodialysis Amount 3000 / 3000 Urine Amount (Catheter) 600 / 600 Indwelling Temp Sensing 600 / 600 Catheter Other: # Bowel Movements 0 Result Diagrams: 10/28/17 06:33 10/28/17 06:33 Objective Remarks: GENERAL: Patient is alert awake intermittently agitated SKIN: Warm and dry. HEAD: Normocephalic. EYES: No scleral icterus. No injection or drainage. NECK: Supple, trachea midline. No JVD or lymphadenopathy. CARDIOVASCULAR: Regular rate and rhythm without murmurs, gallops, or rubs. RESPIRATORY: Breath sounds equal bilaterally. No accessory muscle use. Clear to auscultation anteriorly GASTROINTESTINAL: Abdomen soft, non-tender, nondistended. MUSCULOSKELETAL: No cyanosis, or edema. Neuro: Alert oriented x1 intermittently agitated. No focal deficits oriented to person Assessment and Plan - Problem List (1) Respiratory failure Code(s): J96.90 - Respiratory failure, unspecified, unspecified whether with hypoxia or hypercapnia Status: Acute (2) LBBB (left bundle branch block) Code(s): I44.7 - Left bundle-branch block, unspecified Status: Chronic Onset Date: Unknown (3) CHF (congestive heart failure) Code(s): I50.9 - Heart failure, unspecified Status: Acute (4) Pulmonary edema Code(s): J81.1 - Chronic pulmonary edema Status: Acute (5) IDDM (insulin dependent diabetes mellitus) Code(s): E11.9 - Type 2 diabetes mellitus without complications; Z79.4 - senior care (current) use of insulin Status: Chronic (6) Hypothyroid Code(s): E03.9 - Hypothyroidism, unspecified Status: Chronic (7) ESRD (end stage renal disease) on dialysis Code(s): N18.6 - End stage renal disease; Z99.2 - Dependence on renal dialysis Status: Chronic (8) Anemia Code(s): D64.9 - Anemia, unspecified Status: Chronic (9) Leukocytosis Code(s): D72.829 - Elevated white blood cell count, unspecified Status: Acute (10) CAD (coronary artery disease) Code(s): I25.10 - Atherosclerotic heart disease of [place] coronary artery without angina pectoris Status: Chronic (11) Stented coronary artery Code(s): Z95.5 - Presence of coronary angioplasty implant and graft Status: Chronic (12) HTN (hypertension) Code(s): I10 - Essential (primary) hypertension Status: Chronic (13) HLD (hyperlipidemia) Code(s): E78.5 - Hyperlipidemia, unspecified Status: Chronic - Assessment and Plan Plan: NEURO: Delirium Discontinue fentanyl and propofol Resume home dose of alprazolam 0.25 mg twice daily as needed, hold home Restoril Haldol IV as needed for agitation RESP: Acute respiratory failure-resolved Pulmonary edema DuoNeb every 6 hours. Albuterol q2 hours as needed. Extubated 10/28/2017, tolerating well. 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 CV: Pulmonary edema Acute exacerbation of systolic heart failure Ischemic cardiomyopathy EF 30% approximately Hypertension Hyperlipidemia Coronary artery disease with prior stents (reportedly about a year ago) Left bundle branch block HD with 3L fluid removal 10/27, 3L 10/28 Continue home dose of Lasix and metolazone Significant hypertension on presentation is now normalized on propofol drip. 2D echo report pending, according to Dr. Keene EF 30% approximately Continue aspirin, Brilinta, statin, beta-jeff GI: Swallow eval, start 1999 ADA diet bowel regimen. FEN/RENAL: End-stage renal disease on HD She does still make some urine. A Grissom catheter has been placed in the ED which will continue for now to monitor intake and output. Lasix 70 mg IV was provided per [facility]. 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 Newton". She has been on HD ~ 1year. Has LUE fistula, Last HD 10/25. ID: Leukocytosis She received Zosyn and vancomycin in the emergency department. Blood cultures, sputum and urine culture were sent. Blood cx neg to date. DC Vanc HEME: Chronic anemia Monitor CBC ENDO: Insulin-dependent diabetes mellitus Hypoglycemia Holding insulin pump. Continue sliding scale insulin Start ADA diet, after swallow eval Hypothyroidism Follow-up TSH, resume Synthroid after cleared by speech PROPH: Heparin 5000 units subcu every 12 hours and SCDs for DVT prophylaxis. Famotidine 10 mg IV every 12 hours for stress ulcer prophylaxis. ACCESS: Peripheral IV providing adequate access at this time. Full code Level 2 [facility] consulted to assume care in am 10/30/17 (3) CHF (congestive heart failure) Qualifiers: Heart failure type: systolic Heart failure chronicity: acute Qualified Code( s): I50.21 - Acute systolic (congestive) heart failure (4) Pulmonary edema Qualifiers: Chronicity: acute Qualified Code(s): J81.0 - Acute pulmonary edema (10) CAD (coronary artery disease) Qualifiers: Coronary Disease-Associated Artery/Lesion type: [place] artery [place] vs. transplanted heart: [place] heart Associated angina: without angina Qualified Code(s): I25.10 - Atherosclerotic heart disease of [place] coronary artery without angina pectoris
--- NOTE | 2017-10-29 08:32 | P.PNCA ---
Subjective Interval history: Denies SOB, CP, dizziness, nausea. Physical Exam Vital signs: Vital Signs 10/28/17 10:00 10/28/17 11:18 10/28/17 12:00 Temperature 98.8 F Pulse Rate 66 74 Respiratory Rate 13 20 Blood Pressure 145/60 H Pulse Oximetry 100 100 10/28/17 13:34 10/28/17 14:00 10/28/17 15:21 Temperature Pulse Rate 71 72 Respiratory Rate 16 Blood Pressure Pulse Oximetry 100 10/28/17 16:00 10/28/17 18:00 10/28/17 19:56 Temperature 98.3 F Pulse Rate 66 69 62 Respiratory Rate 22 15 Blood Pressure 150/53 H Pulse Oximetry 100 100 10/28/17 20:00 10/28/17 22:00 10/29/17 00:00 Temperature 97.7 F 98.5 F Pulse Rate 62 61 62 Respiratory Rate 16 23 Blood Pressure 121/55 L 120/56 L Pulse Oximetry 97 98 10/29/17 02:00 10/29/17 03:32 10/29/17 07:52 Temperature Pulse Rate 66 66 74 Respiratory Rate 20 22 Blood Pressure Pulse Oximetry 95 Intake & Output 10/28/17 10/29/17 10/29/17 18:59 06:59 18:59 Intake Total 500 / 500 Output Total 3600 / 3600 Balance -3100 / -3100 Intake: Oral 0 / 0 Tube Feeding 200 / 200 Tube Irrigant 300 / 300 Output: Stool 0 / 0 Hemodialysis Amount 3000 / 3000 Urine Amount (Catheter) 600 / 600 Indwelling Temp Sensing 600 / 600 Catheter Other: # Bowel Movements 0 - Routine Neck Exam Absent: JVD - Routine Respiratory Exam Present: CTA bilaterally - Routine Cardiovascular Exam Present: RRR, S1, S2. Absent: murmur, gallop - Routine Abdominal Exam Present: soft, normoactive bowel sounds. Absent: tenderness, organomegaly - Routine Extremities Exam Absent: cyanosis, clubbing, edema - Urinary Catheter Management Indwelling Urethral Catheter Cath placed during this visit: yes Reason for continuing: Hourly intake/output Insertion date: 10/26/17 Insertion time: 00:29 Indwelling Temp Sensing Catheter Cath placed during this visit: no Assessment and Plan - Assessment (1) CAD (coronary artery disease) Code(s): I25.10 - Atherosclerotic heart disease of [place] coronary artery without angina pectoris Status: Chronic Plan: Stable since admission. No definite evidence for acute coronary syndrome. Recommend continue Brilinta, baby aspirin, beta jeff. OK for discharge from cardiac standpoint. (2) Ischemic cardiomyopathy Code(s): I25.5 - Ischemic cardiomyopathy Status: Chronic Plan: Echo shows EF ~30%, global hypokinesis more pronounced in the LAD coronary territory. Suspect her respiratory failure predominantly due to acute CHF. Improving. Repeat chest x-ray clear. Continue same. (3) CHF (congestive heart failure) Code(s): I50.9 - Heart failure, unspecified Status: Acute Plan: Respiratory status improving. EF 30% on echo. Continue beta jeff, add ABRAHAM- I. Repeat chest x-ray clear. - Plan Code Status: full code (1) CAD (coronary artery disease) Qualifiers: Coronary Disease-Associated Artery/Lesion type: [place] artery [place] vs. transplanted heart: [place] heart Associated angina: without angina Qualified Code(s): I25.10 - Atherosclerotic heart disease of [place] coronary artery without angina pectoris (3) CHF (congestive heart failure) Qualifiers: Heart failure type: systolic Heart failure chronicity: acute Qualified Code( s): I50.21 - Acute systolic (congestive) heart failure
[2017-10-29] MEDS: Famotidine PF Inj 20 MG/2 ML Vial IV.PUSH SCH ×2 (08:34→20:42)
[2017-10-29] MEDS: Senna/Docusate Sodium 8.6/50 MG Tablet PO SCH ×2 (08:35→20:42)
[2017-10-29] MEDS: Carvedilol 12.5 MG Tablet PO SCH ×2 (08:35→20:42)
[2017-10-29] MEDS: metOLazone 5 MG Tablet PO SCH (08:35)
[2017-10-29] MEDS: Furosemide 20 MG Tablet PO SCH (08:35)
[2017-10-29] MEDS: hydrALAZINE 50 MG Tablet PO SCH ×2 (08:35→18:44)
[2017-10-29] MEDS: Levothyroxine 125 MCG Tablet PO SCH (08:36)
[2017-10-29] MEDS: Chlorhexidine 0.12% Oral Kit 15 ML UDC OROPHARYNG SCH ×2 (08:36→20:43)
[2017-10-29] MEDS: amLODIPine 10 MG Tablet PO SCH (08:37)
[2017-10-29 08:40] LABS: Hematocrit 36.2 % (35.0-46.0); Hemoglobin 11.5 gm/dL (11.6-15.3); Mean Corpuscular HGB Conc 31.8 % (32.0-36.0); Mean Corpuscular Hemoglobin 26.4 pg (27.0-34.0); Mean Corpuscular Volume 82.9 fL (80.0-100.0); Mean Platelet Volume 10.8 fL (7.0-11.0); Platelet Count 183 th/mm3 (150-450); Red Blood Count 4.37 mil/mm3 (4.00-5.30); Red Cell Distribution Width 18.9 % (11.6-17.2); White Blood Count 18.1 th/mm3 (4.0-11.0)
[2017-10-29 09:31] LABS: Alanine Aminotransferase 23 U/L (10-53); Albumin 3.4 g/dL (3.4-5.0); Alkaline Phosphatase 120 U/L (45-117); Anion Gap 15 meq/L (5-15); Aspartate Aminotransferase 23 U/L (15-37); Blood Urea Nitrogen 37 mg/dL (7-18); Calcium 9.4 mg/dL (8.5-10.1); Carbon Dioxide 25.2 meq/L (21.0-32.0); Chloride 100 meq/L (98-107); Glomerular Filtration Rate 11 mL/min (>89); Glucose,Random 137 mg/dL (74-106); Potassium 3.3 meq/L (3.5-5.1); Sodium 140 meq/L (136-145); Total Protein 7.6 g/dL (6.4-8.2)
[2017-10-29] MEDS: ALPRAZolam 0.25 MG Tablet PO PRN (10:04)
[2017-10-29 14:40] LABS: Albumin 3.4 g/dL (3.4-5.0); Anion Gap 13 meq/L (5-15); Aspartate Aminotransferase 25 U/L (15-37); Blood Urea Nitrogen 40 mg/dL (7-18); Carbon Dioxide 25.6 meq/L (21.0-32.0); Chloride 103 meq/L (98-107); Glomerular Filtration Rate 9 mL/min (>89); Glucose,Random 99 mg/dL (74-106); Potassium 3.5 meq/L (3.5-5.1); Sodium 142 meq/L (136-145)
[2017-10-29 14:43] LABS: Alanine Aminotransferase 23 U/L (10-53); Alkaline Phosphatase 108 U/L (45-117); Total Protein 7.2 g/dL (6.4-8.2)
--- NOTE | 2017-10-29 16:56 | P.PNNP ---
Subjective Interval history: Patient is restrained and very confused. Hemodialysis this morning tolerated well. <Jaqueline Tong - Last Filed: 10/29/17 16:49> Physical Exam Vital signs: Vital Signs 10/28/17 18:00 10/28/17 19:56 10/28/17 20:00 Temperature 97.7 F Pulse Rate 69 62 62 Respiratory Rate 15 16 Blood Pressure 121/55 L Pulse Oximetry 100 97 10/28/17 22:00 10/29/17 00:00 10/29/17 02:00 Temperature 98.5 F Pulse Rate 61 62 66 Respiratory Rate 23 Blood Pressure 120/56 L Pulse Oximetry 98 10/29/17 03:32 10/29/17 04:00 10/29/17 06:00 Temperature 97.6 F Pulse Rate 66 62 71 Respiratory Rate 20 19 Blood Pressure 97/47 L Pulse Oximetry 97 10/29/17 07:52 10/29/17 08:00 10/29/17 10:00 Temperature 98.2 F Pulse Rate 74 74 78 Respiratory Rate 22 22 Blood Pressure 136/62 Pulse Oximetry 95 100 10/29/17 12:00 10/29/17 14:00 10/29/17 15:12 Temperature 98.8 F Pulse Rate 71 89 74 Respiratory Rate 23 24 Blood Pressure 105/58 L Pulse Oximetry 96 Intake & Output 10/28/17 10/29/17 10/29/17 18:59 06:59 18:59 Intake Total 500 / 500 0 / 0 Output Total 3600 / 3600 250 / 250 Balance -3100 / -3100 -250 / -250 Intake: Oral 0 / 0 0 / 0 Tube Feeding 200 / 200 Tube Irrigant 300 / 300 Output: Stool 0 / 0 0 / 0 Hemodialysis Amount 3000 / 3000 Urine Amount (Catheter) 600 / 600 250 / 250 Indwelling Temp Sensing 600 / 600 Catheter Indwelling Urethral Catheter 250 / 250 Other: # Bowel Movements 0 - Constitutional no acute distress - Routine HEENT Exam Head: Present: normocephalic - Routine Neck Exam Present: supple. Absent: JVD - Routine Respiratory Exam Present: decreased breath sounds. Absent: rhonchi - Routine Cardiovascular Exam Present: RRR - Routine Abdominal Exam Present: soft, normoactive bowel sounds - Routine Extremities Exam Present: edema, AV fistula - Routine Skin Exam Present: intact, warm - Routine Neurological Exam Present: altered mental status - Urinary Catheter Management Indwelling Urethral Catheter Cath placed during this visit: yes Reason for continuing: Hourly intake/output Insertion date: 10/26/17 Insertion time: 00:29 Indwelling Temp Sensing Catheter Cath placed during this visit: no <Jaqueline Tong - Last Filed: 10/29/17 16:49> Vital signs: Vital Signs 10/28/17 19:56 10/28/17 20:00 10/28/17 22:00 Temperature 97.7 F Pulse Rate 62 62 61 Respiratory Rate 15 16 Blood Pressure 121/55 L Pulse Oximetry 100 97 10/29/17 00:00 10/29/17 02:00 10/29/17 03:32 Temperature 98.5 F Pulse Rate 62 66 66 Respiratory Rate 23 20 Blood Pressure 120/56 L Pulse Oximetry 98 10/29/17 04:00 10/29/17 06:00 10/29/17 07:52 Temperature 97.6 F Pulse Rate 62 71 74 Respiratory Rate 19 22 Blood Pressure 97/47 L Pulse Oximetry 97 95 10/29/17 08:00 10/29/17 10:00 10/29/17 12:00 Temperature 98.2 F 98.8 F Pulse Rate 74 78 71 Respiratory Rate 22 23 Blood Pressure 136/62 105/58 L Pulse Oximetry 100 96 10/29/17 14:00 10/29/17 15:12 10/29/17 16:00 Temperature 98.3 F Pulse Rate 89 74 75 Respiratory Rate 24 22 Blood Pressure 137/65 Pulse Oximetry 96 Intake & Output 10/29/17 10/29/17 10/30/17 06:59 18:59 06:59 Intake Total 0 / 0 1000 / 1000 Output Total 250 / 250 Balance -250 / -250 1000 / 1000 Intake: IV 1000 / 1000 D5W/Normal Saline Inj 1,000 ML 1000 / 1000 @ 50 mls/hr IV.CONT .Q20H [facility] Rx#:[id number] Oral 0 / 0 Output: Stool 0 / 0 Urine Amount (Catheter) 250 / 250 Indwelling Urethral Catheter 250 / 250 - Urinary Catheter Management Indwelling Urethral Catheter Cath placed during this visit: no Indwelling Temp Sensing Catheter Cath placed during this visit: no <Elizabeth Branham - Last Filed: 10/29/17 19:34> Assessment and Plan - Plan 1. End-stage renal disease. Left lower AVF with positive thrill and bruit. Hemodialysis today with removal of 3 liters. Plan for next hemodialysis on 2. Pulmonary edema. The patient has underlying chronic obstructive pulmonary disease with possible congestive heart failure and history of coronary artery disease. On room air 3. Hypertension. The patient had initial blood pressure of 200/83; however, now it is better. 4. Insulin-dependent diabetes. Continue to monitor with insulin sliding scale. <Jaqueline Tong - Last Filed: 10/29/17 16:49> - Attending Attestation Patient seen and examined, agree with above. Creatinine increasing, possibly related to diuretics. May will need Dialysis, will follow. <Elizabeth Branham - Last Filed: 10/29/17 19:34>
[2017-10-29] MEDS: Dextrose 5%/NaCl 0.9% Inj 1,000 ML IV.CONT SCH (18:34)
[2017-10-30] MEDS: Heparin - SQ 10,000 UNITS/ML Vial SQ SCH ×2 (00:24→15:08)
[2017-10-30] MEDS: Insulin NovoLIN Regular Correctional Sugar Inj SQ SCH ×5 (00:25→20:48)
[2017-10-30] MEDS: Oral Hygiene Kit OROPHARYNG SCH ×5 (00:26→23:46)
[2017-10-30] MEDS: Chlorhexidine Gluconate 2% 1 Pack (2 Cloths) TOPICAL SCH (04:11)
[2017-10-30] MEDS: Levothyroxine 125 MCG Tablet PO SCH (05:18)
[2017-10-30 07:40] LABS: Baso # (Auto) 0.1 th/mm3 (0.0-0.2); Baso % (Auto) 0.4 % (0.0-2.0); Eos % (Auto) 0.2 % (0.0-4.0); Hematocrit 31.8 % (35.0-46.0); Hemoglobin 10.1 gm/dL (11.6-15.3); Lymph % (Auto) 8.1 % (9.0-44.0); Mean Corpuscular HGB Conc 31.7 % (32.0-36.0); Mean Corpuscular Hemoglobin 26.4 pg (27.0-34.0); Mean Corpuscular Volume 83.4 fL (80.0-100.0); Mean Platelet Volume 10.3 fL (7.0-11.0); Mono # (Auto) 1.1 th/mm3 (0.0-0.9); Mono % (Auto) 8.5 % (0.0-8.0); Neut # (Auto) 10.6 th/mm3 (1.8-7.7); Neut % (Auto) 82.8 % (16.0-70.0); Platelet Count 184 th/mm3 (150-450); Red Blood Count 3.81 mil/mm3 (4.00-5.30); Red Cell Distribution Width 18.3 % (11.6-17.2); White Blood Count 12.8 th/mm3 (4.0-11.0)
[2017-10-30 08:12] LABS: Alanine Aminotransferase 25 U/L (10-53); Albumin 3.3 g/dL (3.4-5.0); Alkaline Phosphatase 107 U/L (45-117); Anion Gap 11 meq/L (5-15); Aspartate Aminotransferase 28 U/L (15-37); Blood Urea Nitrogen 53 mg/dL (7-18); Calcium 9.1 mg/dL (8.5-10.1); Carbon Dioxide 27.2 meq/L (21.0-32.0); Chloride 105 meq/L (98-107); Free T4 (Free Thyroxine) 1.38 ng/dL (0.76-1.46); Glomerular Filtration Rate 8 mL/min (>89); Glucose,Random 126 mg/dL (74-106); Magnesium 2.2 mg/dL (1.5-2.5); Phosphorus 4.1 mg/dL (2.5-4.9); Potassium 3.3 meq/L (3.5-5.1); Sodium 143 meq/L (136-145); Thyroid Stimulating Hormone 0.902 uIU/mL (0.358-3.740); Total Protein 7.2 g/dL (6.4-8.2)
[2017-10-30] MEDS: hydrALAZINE 50 MG Tablet PO SCH ×3 (08:21→17:41)
[2017-10-30] MEDS: Carvedilol 12.5 MG Tablet PO SCH ×2 (08:22→20:49)
[2017-10-30] MEDS: amLODIPine 10 MG Tablet PO SCH (08:22)
[2017-10-30] MEDS: Furosemide 20 MG Tablet PO SCH (08:22)
[2017-10-30] MEDS: Famotidine PF Inj 20 MG/2 ML Vial IV.PUSH SCH ×2 (08:23→20:50)
[2017-10-30] MEDS: metOLazone 5 MG Tablet PO SCH (08:23)
[2017-10-30] MEDS: Senna/Docusate Sodium 8.6/50 MG Tablet PO SCH ×2 (08:23→20:49)
[2017-10-30] MEDS: ALPRAZolam 0.25 MG Tablet PO PRN (08:25)
[2017-10-30] MEDS: Chlorhexidine 0.12% Oral Kit 15 ML UDC OROPHARYNG SCH ×2 (08:31→20:49)
--- NOTE | 2017-10-30 11:24 | P.PN ---
Subjective Interval history: Follow-up acute respiratory failure/ischemic cardiomyopathy/end-stage renal disease on hemodialysis October 30, 2017-patient seen and examined, no acute event overnight. Maintain oxygen saturation above 92%. Denies any chest pain Physical Exam Vital signs: Vital Signs 10/29/17 12:00 10/29/17 13:00 10/29/17 13:49 Temperature 98.8 F Pulse Rate 71 76 75 Respiratory Rate 27 H 27 H 26 H Blood Pressure 105/58 L 111/55 L Pulse Oximetry 96 96 96 10/29/17 14:00 10/29/17 15:00 10/29/17 15:12 Temperature Pulse Rate 74 75 74 Respiratory Rate 23 24 24 Blood Pressure 106/56 L 122/58 L Pulse Oximetry 95 100 10/29/17 16:00 10/29/17 16:01 10/29/17 17:00 Temperature 98.3 F Pulse Rate 75 75 79 Respiratory Rate 23 26 H 19 Blood Pressure 137/65 137/65 145/70 H Pulse Oximetry 96 95 78 L 10/29/17 18:00 10/29/17 18:01 10/29/17 19:00 Temperature Pulse Rate 77 78 76 Respiratory Rate 18 19 25 H Blood Pressure 131/63 139/65 Pulse Oximetry 10/29/17 20:00 10/29/17 21:00 10/29/17 21:09 Temperature 97.6 F Pulse Rate 79 72 76 Respiratory Rate 30 H 18 16 Blood Pressure 130/62 146/63 H Pulse Oximetry 95 10/29/17 22:00 10/29/17 22:01 10/29/17 23:00 Temperature Pulse Rate 72 72 70 Respiratory Rate 20 16 20 Blood Pressure 140/67 134/60 Pulse Oximetry 94 L 97 98 10/30/17 00:00 10/30/17 01:00 10/30/17 02:00 Temperature 99 F Pulse Rate 71 65 76 Respiratory Rate 16 15 18 Blood Pressure 133/61 101/51 L 151/66 H Pulse Oximetry 98 99 98 10/30/17 03:00 10/30/17 03:20 10/30/17 04:00 Temperature 98.9 F Pulse Rate 73 71 72 Respiratory Rate 19 22 15 Blood Pressure 152/95 H Pulse Oximetry 97 97 10/30/17 04:01 10/30/17 05:00 10/30/17 06:00 Temperature Pulse Rate 67 69 72 Respiratory Rate 11 L 18 15 Blood Pressure 130/62 149/66 H 171/70 H Pulse Oximetry 96 94 L 96 10/30/17 07:00 10/30/17 08:00 10/30/17 09:00 Temperature Pulse Rate 72 75 69 Respiratory Rate 18 19 24 Blood Pressure 154/70 H 150/66 H 127/71 Pulse Oximetry 98 95 10/30/17 10:00 Temperature Pulse Rate 66 Respiratory Rate 23 Blood Pressure 120/58 L Pulse Oximetry Intake & Output 10/29/17 10/30/17 10/30/17 18:59 06:59 18:59 Intake Total 1000 / 1000 0 / 0 Output Total 150 / 150 Balance 1000 / 1000 -150 / -150 Intake: IV 1000 / 1000 D5W/Normal Saline Inj 1,000 ML 1000 / 1000 @ 50 mls/hr IV.CONT .Q20H [facility] Rx#:[id number] Oral 0 / 0 Tube Feeding 0 / 0 Tube Irrigant 0 / 0 Output: Urine 0 / 0 Stool 0 / 0 Hemodialysis Amount 0 / 0 Urine Amount (Catheter) 150 / 150 Indwelling Urethral Catheter 150 / 150 Gastric Drainage 0 / 0 Orogastric Tube 0 / 0 Other: Date of Last Bowel Movement 10/30/17 10/30/17 # Bowel Movements 1 Narrative: GENERAL: NAD with restraints to upper extremities SKIN: Warm and dry. HEAD: Normocephalic. EYES: No scleral icterus. No injection or drainage. NECK: Supple, trachea midline. No JVD or lymphadenopathy. CARDIOVASCULAR: Regular rate and rhythm without murmurs, gallops, or rubs. RESPIRATORY: Breath sounds equal bilaterally. No accessory muscle use. GASTROINTESTINAL: Abdomen soft, non-tender, nondistended. MUSCULOSKELETAL: No cyanosis, or edema. BACK: Nontender without obvious deformity. No CVA tenderness. - Urinary Catheter Management Indwelling Urethral Catheter Cath placed during this visit: yes Reason for continuing: Hourly intake/output Insertion date: 10/26/17 Insertion time: 00:29 Indwelling Temp Sensing Catheter Cath placed during this visit: no Results - Labs CBC & Chem 7: 10/30/17 07:15 10/30/17 07:15 Laboratory Results - last 24 hr 10/29/17 10/29/17 10/29/17 11:35 14:00 18:42 WBC RBC Hgb Hct MCV MCH MCHC RDW Plt Count MPV Neut % (Auto) Lymph % (Auto) [place] % (Auto) Eos % (Auto) Baso % (Auto) Neut # (Auto) Lymph # (Auto) [place] # (Auto) Eos # (Auto) Baso # (Auto) WBC Differential Differential Comment Sodium 142 Potassium 3.5 Chloride 103 Carbon Dioxide 25.6 Anion Gap 13 BUN 40 H Creatinine 4.61 H Estimated GFR 9 L POC Glucose 148 H 78 Random Glucose 99 Calcium 9.0 Phosphorus Magnesium Total Bilirubin 0.5 AST 25 ALT 23 Alkaline Phosphatase 108 Total Protein 7.2 Albumin 3.4 TSH Free T4 10/29/17 10/29/17 10/29/17 20:50 20:52 21:49 WBC RBC Hgb Hct MCV MCH MCHC RDW Plt Count MPV Neut % (Auto) Lymph % (Auto) [place] % (Auto) Eos % (Auto) Baso % (Auto) Neut # (Auto) Lymph # (Auto) [place] # (Auto) Eos # (Auto) Baso # (Auto) WBC Differential Differential Comment Sodium Potassium Chloride Carbon Dioxide Anion Gap BUN Creatinine Estimated GFR POC Glucose 66 L 64 L 117 H Random Glucose Calcium Phosphorus Magnesium Total Bilirubin AST ALT Alkaline Phosphatase Total Protein Albumin TSH Free T4 10/30/17 10/30/17 10/30/17 00:22 04:00 07:15 WBC RBC Hgb Hct MCV MCH MCHC RDW Plt Count MPV Neut % (Auto) Lymph % (Auto) [place] % (Auto) Eos % (Auto) Baso % (Auto) Neut # (Auto) Lymph # (Auto) [place] # (Auto) Eos # (Auto) Baso # (Auto) WBC Differential Differential Comment Sodium 143 Potassium 3.3 L Chloride 105 Carbon Dioxide 27.2 Anion Gap 11 BUN 53 H Creatinine 5.10 H Estimated GFR 8 L POC Glucose 108 128 H Random Glucose 126 H Calcium 9.1 Phosphorus 4.1 Magnesium 2.2 Total Bilirubin 0.4 AST 28 ALT 25 Alkaline Phosphatase 107 Total Protein 7.2 Albumin 3.3 L TSH 0.902 Free T4 1.38 10/30/17 10/30/17 07:15 08:13 WBC 12.8 H RBC 3.81 L Hgb 10.1 L Hct 31.8 L MCV 83.4 MCH 26.4 L MCHC 31.7 L RDW 18.3 H Plt Count 184 MPV 10.3 Neut % (Auto) 82.8 H Lymph % (Auto) 8.1 L [place] % (Auto) 8.5 H Eos % (Auto) 0.2 Baso % (Auto) 0.4 Neut # (Auto) 10.6 H Lymph # (Auto) 1.0 [place] # (Auto) 1.1 H Eos # (Auto) 0.0 Baso # (Auto) 0.1 WBC Differential . Differential Comment Auto diff final Sodium Potassium Chloride Carbon Dioxide Anion Gap BUN Creatinine Estimated GFR POC Glucose 110 Random Glucose Calcium Phosphorus Magnesium Total Bilirubin AST ALT Alkaline Phosphatase Total Protein Albumin TSH Free T4 Microbiology 10/26/17 22:50 Blood - Peripheral Aerobic Blood Culture - Preliminary No growth in 4 days 10/26/17 22:50 Blood - Peripheral Anaerobic Blood Culture - Preliminary No growth in 4 days 10/26/17 22:25 Blood - Peripheral Aerobic Blood Culture - Preliminary No growth in 4 days 10/26/17 22:25 Blood - Peripheral Anaerobic Blood Culture - Preliminary No growth in 4 days 10/26/17 21:05 Catheterized Urine Urine Culture - Final No growth in 48 hours 10/27/17 05:30 Sputum - Endotracheal Gram Stain - Final 10/27/17 05:30 Sputum - Endotracheal Sputum Culture - Final Light growth normal respiratory susan Assessment and Plan - Plan 72-year-old female with Delirium-resolving s/p fentanyl and propofol Continue home dose of alprazolam 0.25 mg twice daily as needed, hold home Restoril Haldol IV as needed for agitation Acute respiratory failure-resolved Pulmonary edema DuoNeb every 6 hours. Albuterol q2 hours as needed. Extubated 10/28/2017, tolerating well. 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 Pulmonary edema Acute exacerbation of systolic heart failure Ischemic cardiomyopathy EF 30% approximately Hypertension Hyperlipidemia Coronary artery disease with prior stents (reportedly about a year ago) Left bundle branch block Continue home dose of Lasix and metolazone 2D echo report pending, according to Dr. Keene EF 30% approximately Continue aspirin, Brilinta, statin, beta-jeff End-stage renal disease on HD Continue home Lasix and metolazone Her last inserter is from out of town, states "Dr. Newton". She has been on HD ~ 1year. Appreciate input from nephrology, continue with hemodialysis Leukocytosis She received Zosyn and vancomycin in the emergency department. Blood cultures, sputum and urine culture were sent. Blood cx neg to date. s/p Vanc Chronic anemia Monitor CBC Insulin-dependent diabetes mellitus Hypoglycemia Holding insulin pump. Continue sliding scale insulin Hypothyroidism Follow-up TSH, continue Synthroid Transfer to [facility]
[2017-10-30] MEDS: Dextrose 5%/NaCl 0.9% Inj 1,000 ML IV.CONT SCH (16:48)
[2017-10-30 16:51] LABS: Hemoglobin A1c 8.5 % (4.3-6.0)
--- NOTE | 2017-10-30 19:05 | P.PNNP ---
Subjective Interval history: Patient seen in AM, during HD, clinically same. Physical Exam Vital signs: Vital Signs 10/29/17 20:00 10/29/17 21:00 10/29/17 21:09 Temperature 97.6 F Pulse Rate 79 72 76 Respiratory Rate 30 H 18 16 Blood Pressure 130/62 146/63 H Pulse Oximetry 95 10/29/17 22:00 10/29/17 22:01 10/29/17 23:00 Temperature Pulse Rate 72 72 70 Respiratory Rate 20 16 20 Blood Pressure 140/67 134/60 Pulse Oximetry 94 L 97 98 10/30/17 00:00 10/30/17 01:00 10/30/17 02:00 Temperature 99 F Pulse Rate 71 65 76 Respiratory Rate 16 15 18 Blood Pressure 133/61 101/51 L 151/66 H Pulse Oximetry 98 99 98 10/30/17 03:00 10/30/17 03:20 10/30/17 04:00 Temperature 98.9 F Pulse Rate 73 71 72 Respiratory Rate 19 22 15 Blood Pressure 152/95 H Pulse Oximetry 97 97 10/30/17 04:01 10/30/17 05:00 10/30/17 06:00 Temperature Pulse Rate 67 69 72 Respiratory Rate 11 L 18 15 Blood Pressure 130/62 149/66 H 171/70 H Pulse Oximetry 96 94 L 96 10/30/17 07:00 10/30/17 08:00 10/30/17 09:00 Temperature Pulse Rate 72 75 69 Respiratory Rate 18 19 24 Blood Pressure 154/70 H 150/66 H 127/71 Pulse Oximetry 98 95 10/30/17 10:00 10/30/17 11:00 10/30/17 11:03 Temperature Pulse Rate 66 63 63 Respiratory Rate 23 19 16 Blood Pressure 120/58 L 119/56 L 115/53 L Pulse Oximetry 10/30/17 11:15 10/30/17 11:30 10/30/17 11:45 Temperature Pulse Rate 63 65 68 Respiratory Rate 23 14 26 H Blood Pressure 97/54 L 116/57 L 142/63 H Pulse Oximetry 10/30/17 12:00 10/30/17 12:16 10/30/17 12:30 Temperature Pulse Rate 72 68 73 Respiratory Rate 26 H 48 H 24 Blood Pressure 140/83 114/57 L 110/57 L Pulse Oximetry 10/30/17 12:45 10/30/17 13:00 10/30/17 13:15 Temperature Pulse Rate 72 71 69 Respiratory Rate 13 24 30 H Blood Pressure 121/56 L 115/58 L 117/56 L Pulse Oximetry 10/30/17 13:30 10/30/17 13:45 10/30/17 14:00 Temperature Pulse Rate 72 67 71 Respiratory Rate 22 23 19 Blood Pressure 122/57 L 112/53 L 105/55 L Pulse Oximetry 10/30/17 14:15 10/30/17 14:30 10/30/17 14:45 Temperature Pulse Rate 68 69 67 Respiratory Rate 17 20 23 Blood Pressure 102/55 L 129/61 123/55 L Pulse Oximetry 10/30/17 15:00 Temperature Pulse Rate 84 Respiratory Rate 18 Blood Pressure Pulse Oximetry Intake & Output 10/30/17 10/30/17 10/31/17 06:59 18:59 06:59 Intake Total 0 / 0 1000 / 1000 Output Total 150 / 150 900 / 900 Balance -150 / -150 100 / 100 Intake: IV 1000 / 1000 D5W/Normal Saline Inj 1,000 ML 1000 / 1000 @ 50 mls/hr IV.CONT .Q20H [facility] Rx#:[id number] Oral 0 / 0 Tube Feeding 0 / 0 Tube Irrigant 0 / 0 Output: Urine 0 / 0 Stool 0 / 0 Hemodialysis Amount 0 / 0 900 / 900 Urine Amount (Catheter) 150 / 150 Indwelling Urethral Catheter 150 / 150 Gastric Drainage 0 / 0 Orogastric Tube 0 / 0 Other: Date of Last Bowel Movement 10/30/17 10/30/17 # Bowel Movements 1 Narrative: GENERAL: NAD with restraints to upper extremities, remain confused. SKIN: Warm and dry. HEAD: Normocephalic. EYES: No scleral icterus. No injection or drainage. NECK: Supple, trachea midline. No JVD or lymphadenopathy. CARDIOVASCULAR: Regular rate and rhythm without murmurs, gallops, or rubs. RESPIRATORY: Breath sounds equal bilaterally. No accessory muscle use. GASTROINTESTINAL: Abdomen soft, non-tender, nondistended. MUSCULOSKELETAL: No cyanosis, or edema. BACK: Nontender without obvious deformity. No CVA tenderness. - Urinary Catheter Management Indwelling Urethral Catheter Cath placed during this visit: yes Reason for continuing: Hourly intake/output Insertion date: 10/26/17 Insertion time: 00:29 Indwelling Temp Sensing Catheter Cath placed during this visit: no Assessment and Plan - Plan 1. End-stage renal disease. Left lower AVF with positive thrill and bruit. Hemodialysis today with removal of fluid as tolerated. AVF has poor flow, will get PermCath. 2. Pulmonary edema. The patient has underlying chronic obstructive pulmonary disease with possible congestive heart failure and history of coronary artery disease. On room air 3. Hypertension. The patient had initial blood pressure of 200/83; however, now it is better. 4. Insulin-dependent diabetes. Continue to monitor with insulin sliding scale.
[2017-10-31] MEDS: Insulin NovoLIN Regular Correctional Sugar Inj SQ SCH ×6 (00:02→20:35)
[2017-10-31] MEDS: Heparin - SQ 10,000 UNITS/ML Vial SQ SCH ×2 (00:03→15:09)
[2017-10-31] MEDS: Oral Hygiene Kit OROPHARYNG SCH ×4 (03:52→23:24)
[2017-10-31] MEDS: Chlorhexidine Gluconate 2% 1 Pack (2 Cloths) TOPICAL SCH (03:52)
[2017-10-31] MEDS: Levothyroxine 125 MCG Tablet PO SCH (06:17)
[2017-10-31] MEDS: Famotidine PF Inj 20 MG/2 ML Vial IV.PUSH SCH ×2 (08:41→20:37)
[2017-10-31] MEDS: metOLazone 5 MG Tablet PO SCH (08:43)
[2017-10-31] MEDS: Furosemide 20 MG Tablet PO SCH (08:43)
[2017-10-31] MEDS: Carvedilol 12.5 MG Tablet PO SCH ×2 (08:43→20:36)
[2017-10-31] MEDS: hydrALAZINE 50 MG Tablet PO SCH ×3 (08:43→17:28)
[2017-10-31] MEDS: amLODIPine 10 MG Tablet PO SCH (08:43)
[2017-10-31] MEDS: Senna/Docusate Sodium 8.6/50 MG Tablet PO SCH (08:44)
[2017-10-31] MEDS: Chlorhexidine 0.12% Oral Kit 15 ML UDC OROPHARYNG SCH ×2 (08:45→20:39)
--- NOTE | 2017-10-31 09:53 | P.PNNP ---
Subjective Interval history: Patient remains soft limb restrains but mentation has improved. No shortness of breath or edema. <AlyciaJaqueline - Last Filed: 10/31/17 09:48> Physical Exam Vital signs: Vital Signs 10/30/17 10:00 10/30/17 11:00 10/30/17 11:03 Temperature Pulse Rate 66 63 63 Respiratory Rate 23 19 16 Blood Pressure 120/58 L 119/56 L 115/53 L Pulse Oximetry 10/30/17 11:15 10/30/17 11:30 10/30/17 11:45 Temperature Pulse Rate 63 65 68 Respiratory Rate 23 14 26 H Blood Pressure 97/54 L 116/57 L 142/63 H Pulse Oximetry 10/30/17 12:00 10/30/17 12:16 10/30/17 12:30 Temperature Pulse Rate 72 68 73 Respiratory Rate 26 H 48 H 24 Blood Pressure 140/83 114/57 L 110/57 L Pulse Oximetry 10/30/17 12:45 10/30/17 13:00 10/30/17 13:15 Temperature Pulse Rate 72 71 69 Respiratory Rate 13 24 30 H Blood Pressure 121/56 L 115/58 L 117/56 L Pulse Oximetry 10/30/17 13:30 10/30/17 13:45 10/30/17 14:00 Temperature Pulse Rate 72 67 71 Respiratory Rate 22 23 19 Blood Pressure 122/57 L 112/53 L 105/55 L Pulse Oximetry 10/30/17 14:15 10/30/17 14:30 10/30/17 14:45 Temperature Pulse Rate 68 69 67 Respiratory Rate 17 20 23 Blood Pressure 102/55 L 129/61 123/55 L Pulse Oximetry 10/30/17 15:00 10/30/17 20:00 10/30/17 20:30 Temperature 98.1 F Pulse Rate 84 68 69 Respiratory Rate 18 17 Blood Pressure 127/56 L Pulse Oximetry 94 L 10/30/17 21:02 10/31/17 00:00 10/31/17 02:41 Temperature 98.1 F Pulse Rate 67 62 63 Respiratory Rate 15 16 Blood Pressure 119/53 L Pulse Oximetry 94 L 10/31/17 04:00 10/31/17 04:15 10/31/17 08:00 Temperature 98.4 F 98.3 F Pulse Rate 64 65 69 Respiratory Rate 16 21 Blood Pressure 136/62 145/67 H Pulse Oximetry 95 94 L Intake & Output 10/30/17 10/31/17 10/31/17 18:59 06:59 18:59 Intake Total 1000 / 1000 240 / 240 Output Total 900 / 900 Balance 100 / 100 240 / 240 Weight 59 kg Intake: IV 1000 / 1000 D5W/Normal Saline Inj 1,000 ML 1000 / 1000 @ 50 mls/hr IV.CONT .Q20H [facility] Rx#:[id number] Oral 240 / 240 Output: Hemodialysis Amount 900 / 900 Other: # Voids 1 # Incontinent Voids 2 Date of Last Bowel Movement 10/30/17 10/30/17 # Bowel Movements 1 # Incontinent Bowel Movements 1 - Constitutional no acute distress - Routine HEENT Exam Head: Present: normocephalic ENT: Present: mucous membranes moist - Routine Neck Exam Present: supple. Absent: JVD - Routine Respiratory Exam Present: CTA bilaterally. Absent: rales, rhonchi - Routine Cardiovascular Exam Present: RRR - Routine Abdominal Exam Present: soft, normoactive bowel sounds - Routine Extremities Exam Present: AV fistula. Absent: edema - Routine Skin Exam Present: intact - Routine Neurological Exam Present: alert, oriented X3 - Routine Psychiatric Exam Present: cooperative - Urinary Catheter Management Indwelling Urethral Catheter Cath placed during this visit: yes Reason for continuing: Hourly intake/output Insertion date: 10/26/17 Insertion time: 00:29 Indwelling Temp Sensing Catheter Cath placed during this visit: no <Jaqueline Tong - Last Filed: 10/31/17 09:48> Vital signs: Vital Signs 10/30/17 20:00 10/30/17 20:30 10/30/17 21:02 Temperature 98.1 F Pulse Rate 68 69 67 Respiratory Rate 17 15 Blood Pressure 127/56 L Pulse Oximetry 94 L 10/31/17 00:00 10/31/17 02:41 10/31/17 04:00 Temperature 98.1 F 98.4 F Pulse Rate 62 63 64 Respiratory Rate 16 16 Blood Pressure 119/53 L 136/62 Pulse Oximetry 94 L 95 10/31/17 04:15 10/31/17 08:00 10/31/17 12:00 Temperature 98.3 F 97.7 F Pulse Rate 65 69 61 Respiratory Rate 18 Blood Pressure 145/67 H 117/54 L Pulse Oximetry 94 L 93 L 10/31/17 16:00 Temperature 97.9 F Pulse Rate 64 Respiratory Rate 20 Blood Pressure 118/67 Pulse Oximetry 96 Intake & Output 10/30/17 10/31/17 10/31/17 18:59 06:59 18:59 Intake Total 1000 / 1000 240 / 240 Output Total 900 / 900 Balance 100 / 100 240 / 240 Weight 59 kg Intake: IV 1000 / 1000 D5W/Normal Saline Inj 1,000 ML 1000 / 1000 @ 50 mls/hr IV.CONT .Q20H [facility] Rx#:[id number] Oral 240 / 240 Output: Hemodialysis Amount 900 / 900 Other: # Voids 1 # Incontinent Voids 2 Date of Last Bowel Movement 10/30/17 10/30/17 10/31/17 # Bowel Movements 1 # Incontinent Bowel Movements 1 - Urinary Catheter Management Indwelling Urethral Catheter Cath placed during this visit: no Indwelling Temp Sensing Catheter Cath placed during this visit: no <Elizabeth Branham - Last Filed: 10/31/17 18:39> Assessment and Plan - Plan 1. End-stage renal disease. Left lower AVF with positive thrill and bruit. Hemodialysis yesterday only able to remove 900cc AVF has poor flow, will get PermCath. 2. Pulmonary edema. The patient has underlying chronic obstructive pulmonary disease with possible congestive heart failure and history of coronary artery disease. On room air 3. Hypertension. The patient had initial blood pressure of 200/83; however, now it is better. 4. Insulin-dependent diabetes. Continue to monitor with insulin sliding scale. <Jaqueline Tong - Last Filed: 10/31/17 09:48> - Attending Attestation Patient seen and examined, agree with above. Has poor flow from AVF, need PermCath, could not be done as she is on Brilinta, got Vascath. HD tomorrow. <Elizabeth Branham - Last Filed: 10/31/17 18:39>
--- NOTE | 2017-10-31 12:16 | P.PN ---
Subjective Interval history: Follow-up acute respiratory failure/ischemic cardiomyopathy/end-stage renal disease on hemodialysis October 30, 2017-patient seen and examined, no acute event overnight. Maintain oxygen saturation above 92%. Denies any chest pain October 31, 2017-patient seen and examined, alert and oriented 2 ,patient ripped her insulin pump overnight. Physical Exam Vital signs: Vital Signs 10/30/17 12:16 10/30/17 12:30 10/30/17 12:45 Temperature Pulse Rate 68 73 72 Respiratory Rate 48 H 24 13 Blood Pressure 114/57 L 110/57 L 121/56 L Pulse Oximetry 10/30/17 13:00 10/30/17 13:15 10/30/17 13:30 Temperature Pulse Rate 71 69 72 Respiratory Rate 24 30 H 22 Blood Pressure 115/58 L 117/56 L 122/57 L Pulse Oximetry 10/30/17 13:45 10/30/17 14:00 10/30/17 14:15 Temperature Pulse Rate 67 71 68 Respiratory Rate 23 19 17 Blood Pressure 112/53 L 105/55 L 102/55 L Pulse Oximetry 10/30/17 14:30 10/30/17 14:45 10/30/17 15:00 Temperature Pulse Rate 69 67 84 Respiratory Rate 20 23 18 Blood Pressure 129/61 123/55 L Pulse Oximetry 10/30/17 20:00 10/30/17 20:30 10/30/17 21:02 Temperature 98.1 F Pulse Rate 68 69 67 Respiratory Rate 17 15 Blood Pressure 127/56 L Pulse Oximetry 94 L 10/31/17 00:00 10/31/17 02:41 10/31/17 04:00 Temperature 98.1 F 98.4 F Pulse Rate 62 63 64 Respiratory Rate 16 16 Blood Pressure 119/53 L 136/62 Pulse Oximetry 94 L 95 10/31/17 04:15 10/31/17 08:00 Temperature 98.3 F Pulse Rate 65 69 Respiratory Rate 18 Blood Pressure 145/67 H Pulse Oximetry 94 L Intake & Output 10/30/17 10/31/17 10/31/17 18:59 06:59 18:59 Intake Total 1000 / 1000 240 / 240 Output Total 900 / 900 Balance 100 / 100 240 / 240 Weight 59 kg Intake: IV 1000 / 1000 D5W/Normal Saline Inj 1,000 ML 1000 / 1000 @ 50 mls/hr IV.CONT .Q20H [facility] Rx#:[id number] Oral 240 / 240 Output: Hemodialysis Amount 900 / 900 Other: # Voids 1 # Incontinent Voids 2 Date of Last Bowel Movement 10/30/17 10/30/17 10/31/17 # Bowel Movements 1 # Incontinent Bowel Movements 1 Narrative: GENERAL: NAD with restraints to upper extremities SKIN: Warm and dry. HEAD: Normocephalic. EYES: No scleral icterus. No injection or drainage. NECK: Supple, trachea midline. No JVD or lymphadenopathy. CARDIOVASCULAR: Regular rate and rhythm without murmurs, gallops, or rubs. RESPIRATORY: Breath sounds equal bilaterally. No accessory muscle use. GASTROINTESTINAL: Abdomen soft, non-tender, nondistended. MUSCULOSKELETAL: No cyanosis, or edema. BACK: Nontender without obvious deformity. No CVA tenderness. - Urinary Catheter Management Indwelling Urethral Catheter Cath placed during this visit: yes Reason for continuing: Hourly intake/output Insertion date: 10/26/17 Insertion time: 00:29 Indwelling Temp Sensing Catheter Cath placed during this visit: no Results - Labs CBC & Chem 7: 10/30/17 07:15 10/30/17 07:15 Laboratory Results - last 24 hr 10/30/17 10/30/17 10/30/17 07:15 16:36 19:55 POC Glucose 135 H 231 H Hemoglobin A1c 8.5 H 10/30/17 10/31/17 10/31/17 23:49 04:42 07:25 POC Glucose 223 H 184 H 214 H Hemoglobin A1c 10/31/17 11:02 POC Glucose 221 H Hemoglobin A1c Microbiology 10/26/17 22:50 Blood - Peripheral Aerobic Blood Culture - Final No growth in 5 days 10/26/17 22:50 Blood - Peripheral Anaerobic Blood Culture - Final No growth in 5 days 10/26/17 22:25 Blood - Peripheral Aerobic Blood Culture - Final No growth in 5 days 10/26/17 22:25 Blood - Peripheral Anaerobic Blood Culture - Final No growth in 5 days Assessment and Plan - Plan 72-year-old female with Delirium-resolving Continue home dose of alprazolam 0.25 mg twice daily as needed, hold home Restoril Haldol IV as needed for agitation Acute respiratory failure-resolved Pulmonary edema DuoNeb every 6 hours. Albuterol q2 hours as needed. Extubated 10/28/2017, tolerating well. 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 Pulmonary edema Acute exacerbation of systolic heart failure Ischemic cardiomyopathy EF 30% approximately Hypertension Hyperlipidemia Coronary artery disease with prior stents (reportedly about a year ago) Left bundle branch block Continue home dose of Lasix and metolazone 2D echo report pending, according to Dr. Keene EF 30% approximately Continue aspirin, Brilinta, statin, beta-jeff. Will hold Brilinta in to place permacath End-stage renal disease on HD Continue home Lasix and metolazone Her it architect is from out of [facility], states "Dr. Newton". She has been on HD ~ 1year. Appreciate input from nephrology, continue with hemodialysis Plan for permacath versus Vas-Cath placement today October 31, 2017 Leukocytosis She received Zosyn and vancomycin in the emergency department. Blood cultures, sputum and urine culture were sent. Blood cx neg to date. s/p Vanc Chronic anemia Monitor CBC Insulin-dependent diabetes mellitus Hypoglycemia-resolved Patient ripped off her insulin pump. Start Levemir 5 units every 12 hours , discontinue D5 water and continue sliding scale insulin Hypothyroidism Follow-up TSH, continue Synthroid
[2017-10-31] MEDS ORDERED: *Heparin 10,000 UNITS/10 ML Vial Periprocedural ONLY ONE (13:34)
[2017-10-31] MEDS ORDERED: Heparin Central Flush 100 UNIT/ML 5 ML Vial IV.FLUSH PRN (13:55)
--- NOTE | 2017-10-31 14:03 | P.RAD ---
Post Procedure Progress Note - Pre Procedure Diagnosis (1) ESRD (end stage renal disease) on dialysis - Post Procedure Diagnosis (1) ESRD (end stage renal disease) on dialysis - Procedure Information Procedure Date: 10/31/17 Supervising Radiologist: Inderjit Raya Jr, MD Estimated blood loss (mL): 0 Anesthesia: Local - Plan of Activity Patient to Unit: Nursing Unit Patient Condition: Good See PACS Report for procedural detail/treatment. CVAD Radiology Procedures left Internal Jugular Hemodialysis Catheter Non-Tunneled Placement Device: dual lumen Japanese: 14 PICC Line Length (cm): 20 - Additional Detail Findings: Right IJ occluded. Placed LIJ Vascath. In good position and functions well. OK to use. Plan: Can convert to Permacath following appropriate hold on anticoagulant.
--- NOTE | 2017-10-31 16:01 | IR ---
EXAM DATE: 10/31/2017 2:13 PM EDT AGE/SEX: 72 years / Female INDICATIONS: Patient presents with end stage renal disease in need of dialysis catheter. Left-sided fistula is nonfunctioning. Patient on blood thinner. CLINICAL DATA: This is the patient's initial encounter. Patient reports that signs and symptoms have been present for 4 - 6 days and indicates a pain score of 0/10. MEDICAL/SURGICAL HISTORY: Diabetes. Atrial Fibrillation None. COMPARISON: No prior exams available for comparison. FLUORO TIME (min): .27 IMAGE SERIES: ACCESS SITE: Left internal jugular vein DEVICE(S): 14 Pashto double lumen Schon catheter 20cm . . PROCEDURE : 1. Ultrasound guided venipuncture. 2. Fluoroscopic guidance. 3. Central line placement. The risks, benefits and alternatives to the procedure were explained and verbal and written consent w as obtained. The site was prepped in sterile fashion. Full sterile technique was used, including ca p, mask, sterile gloves and gown and a large sterile sheet. Hand hygiene and 2% chlorhexidine prep w as utilized per protocol for cutaneous antisepsis with appropriate dry time for site. Sterile gel an d sterile probe cover were utilized for ultrasound guidance. The skin and subcutaneous tissues were infiltrated with local anesthetic solution. A suitable site a luis the left internal jugular vein was selected with ultrasound and fluoroscopic guidance. The right internal jugular vein is occluded. A small incision was made. The vein was accessed under direct ul trasound visualization using the micropuncture technique. The micropuncture set was exchanged for a 0.035 wire. The tract was dilated. The catheter was advanced into position under direct fluoroscopi c visualization, and was advanced with the tip at the junction of the superior vena cava and rt atriu m. The catheter was fixed in place with suture and a sterile dressing was applied. The patient tolerated the procedure well and there were no complications. CONCLUSION: 1. Uncomplicated line placement as above. Electronically signed by: Inderjit Raya MD 10/31/2017 3:59 PM EDT
[2017-10-31] MEDS: Insulin Detemir Inj 1,000 UNIT/10 ML Vial SQ SCH (20:37)
[2017-11-01] MEDS: Heparin - SQ 10,000 UNITS/ML Vial SQ SCH ×2 (00:31→13:30)
[2017-11-01] MEDS: Insulin NovoLIN Regular Correctional Sugar Inj SQ SCH ×6 (00:32→20:35)
[2017-11-01] MEDS: Oral Hygiene Kit OROPHARYNG SCH ×4 (03:43→23:02)
[2017-11-01] MEDS: Levothyroxine 125 MCG Tablet PO SCH (05:47)
[2017-11-01] MEDS: Chlorhexidine 0.12% Oral Kit 15 ML UDC OROPHARYNG SCH ×2 (08:29→20:03)
[2017-11-01] MEDS: Insulin Detemir Inj 1,000 UNIT/10 ML Vial SQ SCH ×2 (08:31→20:36)
[2017-11-01 09:39] LABS: Baso # (Auto) 0.1 th/mm3 (0.0-0.2); Baso % (Auto) 0.6 % (0.0-2.0); Eos # (Auto) 0.1 th/mm3 (0.0-0.4); Eos % (Auto) 1.2 % (0.0-4.0); Hemoglobin 10.5 gm/dL (11.6-15.3); Lymph # (Auto) 1.1 th/mm3 (1.0-4.8); Lymph % (Auto) 11.7 % (9.0-44.0); Mean Corpuscular HGB Conc 31.8 % (32.0-36.0); Mean Corpuscular Hemoglobin 26.4 pg (27.0-34.0); Mean Corpuscular Volume 82.9 fL (80.0-100.0); Mean Platelet Volume 10.3 fL (7.0-11.0); Mono # (Auto) 0.7 th/mm3 (0.0-0.9); Mono % (Auto) 8.1 % (0.0-8.0); Neut % (Auto) 78.4 % (16.0-70.0); Platelet Count 241 th/mm3 (150-450); Red Blood Count 3.97 mil/mm3 (4.00-5.30); Red Cell Distribution Width 18.4 % (11.6-17.2)
[2017-11-01 10:03] LABS: Albumin 3.5 g/dL (3.4-5.0); Anion Gap 13 meq/L (5-15); Aspartate Aminotransferase 21 U/L (15-37); Blood Urea Nitrogen 62 mg/dL (7-18); Calcium 8.9 mg/dL (8.5-10.1); Carbon Dioxide 24.7 meq/L (21.0-32.0); Chloride 103 meq/L (98-107); Glomerular Filtration Rate 8 mL/min (>89); Glucose,Random 130 mg/dL (74-106); Potassium 3.7 meq/L (3.5-5.1); Sodium 141 meq/L (136-145)
[2017-11-01 10:07] LABS: Alanine Aminotransferase 30 U/L (10-53); Alkaline Phosphatase 115 U/L (45-117); Total Protein 7.4 g/dL (6.4-8.2)
[2017-11-01] MEDS: hydrALAZINE 50 MG Tablet PO SCH ×4 (13:17→18:22)
[2017-11-01] MEDS: Carvedilol 12.5 MG Tablet PO SCH ×2 (13:17→20:37)
[2017-11-01] MEDS: Furosemide 20 MG Tablet PO SCH (13:17)
[2017-11-01] MEDS: Famotidine PF Inj 20 MG/2 ML Vial IV.PUSH SCH ×2 (13:18→20:37)
[2017-11-01] MEDS: amLODIPine 10 MG Tablet PO SCH (13:31)
[2017-11-01] MEDS: metOLazone 5 MG Tablet PO SCH (13:32)
--- NOTE | 2017-11-01 13:37 | P.PN ---
Subjective Interval history: Follow-up acute respiratory failure/ischemic cardiomyopathy/end-stage renal disease on hemodialysis October 30, 2017-patient seen and examined, no acute event overnight. Maintain oxygen saturation above 92%. Denies any chest pain October 31, 2017-patient seen and examined, alert and oriented 2 ,patient ripped her insulin pump overnight. November 01, 2017-patient seen and examined, she had hemodialysis today. Some confusion. States she wants to go home. She is off restraints. Physical Exam Vital signs: Vital Signs 10/31/17 16:00 10/31/17 20:00 10/31/17 21:40 Temperature 97.9 F 98.1 F Pulse Rate 64 64 62 Respiratory Rate 20 22 Blood Pressure 118/67 132/61 Pulse Oximetry 96 97 10/31/17 23:50 11/01/17 00:00 11/01/17 04:00 Temperature 97.6 F 97.6 F Pulse Rate 60 58 L 58 L Respiratory Rate 20 20 Blood Pressure 129/58 L 149/69 H Pulse Oximetry 99 99 11/01/17 08:00 11/01/17 08:19 11/01/17 10:03 Temperature 98.2 F Pulse Rate 66 67 Respiratory Rate 18 Blood Pressure 175/72 H Pulse Oximetry 94 L 99 11/01/17 12:00 Temperature 97.8 F Pulse Rate 68 Respiratory Rate 20 Blood Pressure 137/63 Pulse Oximetry 98 Intake & Output 10/31/17 11/01/17 11/01/17 18:59 06:59 18:59 Intake Total 720 / 720 120 / 120 Output Total 1999 Balance 720 / 720 120 / 120 -1999 Weight 61.1 kg Intake: Oral 720 / 720 Oral Supplement 120 / 120 Output: Hemodialysis Amount 1999 Other: # Voids 2 3 Date of Last Bowel Movement 10/31/17 10/31/17 10/31/17 # Bowel Movements 1 1 Narrative: GENERAL: NAD SKIN: Warm and dry. HEAD: Normocephalic. EYES: No scleral icterus. No injection or drainage. NECK: Supple, trachea midline. No JVD or lymphadenopathy. CARDIOVASCULAR: Regular rate and rhythm without murmurs, gallops, or rubs. RESPIRATORY: Breath sounds equal bilaterally. No accessory muscle use. GASTROINTESTINAL: Abdomen soft, non-tender, nondistended. MUSCULOSKELETAL: No cyanosis, or edema. BACK: Nontender without obvious deformity. No CVA tenderness. - Urinary Catheter Management Indwelling Urethral Catheter Cath placed during this visit: yes Reason for continuing: Hourly intake/output Insertion date: 10/26/17 Insertion time: 00:29 Indwelling Temp Sensing Catheter Cath placed during this visit: no Results - Labs CBC & Chem 7: 11/01/17 08:54 11/01/17 08:54 Laboratory Results - last 24 hr 10/31/17 10/31/17 11/01/17 17:03 19:11 00:27 WBC RBC Hgb Hct MCV MCH MCHC RDW Plt Count MPV Neut % (Auto) Lymph % (Auto) [place] % (Auto) Eos % (Auto) Baso % (Auto) Neut # (Auto) Lymph # (Auto) [place] # (Auto) Eos # (Auto) Baso # (Auto) WBC Differential Differential Comment Sodium Potassium Chloride Carbon Dioxide Anion Gap BUN Creatinine Estimated GFR POC Glucose 296 H 242 H 98 Random Glucose Calcium Total Bilirubin AST ALT Alkaline Phosphatase Total Protein Albumin 11/01/17 11/01/17 11/01/17 03:45 08:01 08:54 WBC 9.0 RBC 3.97 L Hgb 10.5 L Hct 33.0 L MCV 82.9 MCH 26.4 L MCHC 31.8 L RDW 18.4 H Plt Count 241 D MPV 10.3 Neut % (Auto) 78.4 H Lymph % (Auto) 11.7 [place] % (Auto) 8.1 H Eos % (Auto) 1.2 Baso % (Auto) 0.6 Neut # (Auto) 7.0 Lymph # (Auto) 1.1 [place] # (Auto) 0.7 Eos # (Auto) 0.1 Baso # (Auto) 0.1 WBC Differential . Differential Comment Auto diff final Sodium Potassium Chloride Carbon Dioxide Anion Gap BUN Creatinine Estimated GFR POC Glucose 108 131 H Random Glucose Calcium Total Bilirubin AST ALT Alkaline Phosphatase Total Protein Albumin 11/01/17 11/01/17 08:54 12:35 WBC RBC Hgb Hct MCV MCH MCHC RDW Plt Count MPV Neut % (Auto) Lymph % (Auto) [place] % (Auto) Eos % (Auto) Baso % (Auto) Neut # (Auto) Lymph # (Auto) [place] # (Auto) Eos # (Auto) Baso # (Auto) WBC Differential Differential Comment Sodium 141 Potassium 3.7 Chloride 103 Carbon Dioxide 24.7 Anion Gap 13 BUN 62 H Creatinine 5.23 H Estimated GFR 8 L POC Glucose 199 H Random Glucose 130 H Calcium 8.9 Total Bilirubin 0.5 AST 21 ALT 30 Alkaline Phosphatase 115 Total Protein 7.4 Albumin 3.5 Microbiology 10/26/17 22:25 Blood - Peripheral Aerobic Blood Culture - Final No growth in 5 days 10/26/17 22:25 Blood - Peripheral Anaerobic Blood Culture - Preliminary 10/26/17 22:50 Blood - Peripheral Aerobic Blood Culture - Final No growth in 5 days 10/26/17 22:50 Blood - Peripheral Anaerobic Blood Culture - Final No growth in 5 days - Imaging Impressions Catheter Placement 10/31/17 00:00 CONCLUSION: 1. Uncomplicated line placement as above. Assessment and Plan - Plan 72-year-old female with Delirium-resolving Continue home dose of alprazolam 0.25 mg twice daily as needed, hold home Restoril Haldol IV as needed for agitation Acute respiratory failure-resolved Pulmonary edema DuoNeb every 6 hours. Albuterol q2 hours as needed. Extubated 10/28/2017, tolerating well. She has an outpatient social insurance administrator, her is uncertain of physician name. Pulmonary edema Acute exacerbation of systolic heart failure Ischemic cardiomyopathy EF 30% approximately Hypertension Hyperlipidemia Coronary artery disease with prior stents (reportedly about a year ago) Left bundle branch block Continue home dose of Lasix and metolazone 2D echo report pending, according to Dr. Keene EF 30% approximately Continue aspirin, Brilinta, statin, beta-jeff. 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 Newton". She has been on HD ~ 1year. Appreciate input from nephrology, continue with hemodialysis s/p Vas-Cath placement October 31, 2017 Leukocytosis She received Zosyn and vancomycin in the emergency department. Blood cultures, sputum and urine culture were sent. Blood cx neg to date. s/p Vanc Chronic anemia Monitor CBC Insulin-dependent diabetes mellitus Hypoglycemia-resolved Patient ripped off her insulin pump. Continue Levemir 5 units every 12 hours and sliding scale insulin Hypothyroidism Follow-up TSH, continue Synthroid
--- NOTE | 2017-11-01 15:47 | P.PNNP ---
Subjective Interval history: Patient seen in AM during HD, no SOB, feeling better. Physical Exam Vital signs: Vital Signs 10/31/17 16:00 10/31/17 20:00 10/31/17 21:40 Temperature 97.9 F 98.1 F Pulse Rate 64 64 62 Respiratory Rate 20 22 Blood Pressure 118/67 132/61 Pulse Oximetry 96 97 10/31/17 23:50 11/01/17 00:00 11/01/17 04:00 Temperature 97.6 F 97.6 F Pulse Rate 60 58 L 58 L Respiratory Rate 20 20 Blood Pressure 129/58 L 149/69 H Pulse Oximetry 99 99 11/01/17 08:00 11/01/17 08:19 11/01/17 10:03 Temperature 98.2 F Pulse Rate 66 67 Respiratory Rate 18 Blood Pressure 175/72 H Pulse Oximetry 94 L 99 11/01/17 12:00 Temperature 97.8 F Pulse Rate 68 Respiratory Rate 20 Blood Pressure 137/63 Pulse Oximetry 98 Intake & Output 10/31/17 11/01/17 11/01/17 18:59 06:59 18:59 Intake Total 720 / 720 120 / 120 Output Total 1999 Balance 720 / 720 120 / 120 -1999 Weight 61.1 kg Intake: Oral 720 / 720 Oral Supplement 120 / 120 Output: Hemodialysis Amount 1999 Other: # Voids 2 3 Date of Last Bowel Movement 10/31/17 10/31/17 10/31/17 # Bowel Movements 1 1 Narrative: GENERAL: Patient is alert, not in distress. SKIN: Warm and dry. HEAD: Normocephalic. EYES: No scleral icterus. No injection or drainage. NECK: Supple, trachea midline. No JVD or lymphadenopathy. CARDIOVASCULAR: Regular rate and rhythm without murmurs, gallops, or rubs. RESPIRATORY: Breath sounds equal bilaterally. No accessory muscle use. GASTROINTESTINAL: Abdomen soft, non-tender, nondistended. MUSCULOSKELETAL: No cyanosis, or edema. BACK: Nontender without obvious deformity. No CVA tenderness. - Urinary Catheter Management Indwelling Urethral Catheter Cath placed during this visit: yes Reason for continuing: Hourly intake/output Insertion date: 10/26/17 Insertion time: 00:29 Indwelling Temp Sensing Catheter Cath placed during this visit: no Assessment and Plan - Plan 1. End-stage renal disease. Left lower AVF with positive thrill and bruit. Hemodialysis yesterday only able to remove 900cc AVF has poor flow, got Paxtoncath as she is on Brilinta. 2. Pulmonary edema. The patient has underlying chronic obstructive pulmonary disease with possible congestive heart failure and history of coronary artery disease. On room air 3. Hypertension. The patient had initial blood pressure of 200/83; however, now it is better. 4. Insulin-dependent diabetes. Continue to monitor with insulin sliding scale. Once ready for discharge will D/Viji Rivera, and her HD unit has been using AVF with success.
[2017-11-02] MEDS: Insulin NovoLIN Regular Correctional Sugar Inj SQ SCH ×4 (00:12→12:55)
[2017-11-02] MEDS: Heparin - SQ 10,000 UNITS/ML Vial SQ SCH (00:13)
[2017-11-02] MEDS: Oral Hygiene Kit OROPHARYNG SCH (03:11)
[2017-11-02] MEDS: Levothyroxine 125 MCG Tablet PO SCH (05:14)
[2017-11-02] MEDS: metOLazone 5 MG Tablet PO SCH (09:01)
[2017-11-02] MEDS: hydrALAZINE 50 MG Tablet PO SCH ×2 (09:02→12:56)
[2017-11-02] MEDS: Carvedilol 12.5 MG Tablet PO SCH (09:02)
[2017-11-02] MEDS: amLODIPine 10 MG Tablet PO SCH (09:02)
[2017-11-02] MEDS: Famotidine PF Inj 20 MG/2 ML Vial IV.PUSH SCH (09:03)
[2017-11-02] MEDS: Chlorhexidine 0.12% Oral Kit 15 ML UDC OROPHARYNG SCH (09:03)
[2017-11-02] MEDS: Furosemide 20 MG Tablet PO SCH (09:03)
[2017-11-02] MEDS: Insulin Detemir Inj 1,000 UNIT/10 ML Vial SQ SCH (09:28)
--- NOTE | 2017-11-02 09:36 | P.PN ---
Subjective Interval history: Follow-up acute respiratory failure/ischemic cardiomyopathy/end-stage renal disease on hemodialysis October 30, 2017-patient seen and examined, no acute event overnight. Maintain oxygen saturation above 92%. Denies any chest pain October 31, 2017-patient seen and examined, alert and oriented 2 ,patient ripped her insulin pump overnight. November 01, 2017-patient seen and examined, she had hemodialysis today. Some confusion. States she wants to go home. She is off restraints. November 02, 2017-patient seen and examined, stable and alert and oriented 3. Had hemodialysis yesterday. Physical Exam Vital signs: Vital Signs 11/01/17 10:03 11/01/17 12:00 11/01/17 16:00 Temperature 97.8 F 98.1 F Pulse Rate 68 67 Respiratory Rate 20 18 Blood Pressure 137/63 132/60 Pulse Oximetry 99 98 98 11/01/17 20:00 11/02/17 00:00 11/02/17 04:00 Temperature 97.7 F 97.5 F L 97.9 F Pulse Rate 66 59 L 59 L Respiratory Rate 17 20 16 Blood Pressure 121/56 L 115/63 111/68 Pulse Oximetry 97 98 94 L 11/02/17 04:05 11/02/17 08:00 Temperature 97.3 F L Pulse Rate 66 69 Respiratory Rate 18 Blood Pressure 140/66 Pulse Oximetry 98 Intake & Output 11/01/17 11/02/17 11/02/17 18:59 06:59 18:59 Intake Total 480 / 480 Output Total 1999 300 / 300 Balance -1999 / -1999 180 / 180 Weight 61.8 kg Intake: Oral 480 / 480 Output: Urine 300 / 300 Hemodialysis Amount 1999 Other: # Voids 3 Date of Last Bowel Movement 10/31/17 10/31/17 Narrative: GENERAL: NAD. SKIN: Warm and dry. HEAD: Normocephalic. EYES: No scleral icterus. No injection or drainage. NECK: Supple, trachea midline. No JVD or lymphadenopathy. Vas-Cath in place CARDIOVASCULAR: Regular rate and rhythm without murmurs, gallops, or rubs. RESPIRATORY: Breath sounds equal bilaterally. No accessory muscle use. GASTROINTESTINAL: Abdomen soft, non-tender, nondistended. MUSCULOSKELETAL: No cyanosis, or edema. BACK: Nontender without obvious deformity. No CVA tenderness. - Urinary Catheter Management Indwelling Urethral Catheter Cath placed during this visit: yes Reason for continuing: Hourly intake/output Insertion date: 10/26/17 Insertion time: 00:29 Indwelling Temp Sensing Catheter Cath placed during this visit: no Results - Labs CBC & Chem 7: 11/01/17 08:54 11/01/17 08:54 Laboratory Results - last 24 hr 11/01/17 11/01/17 11/01/17 08:54 08:54 12:35 WBC 9.0 RBC 3.97 L Hgb 10.5 L Hct 33.0 L MCV 82.9 MCH 26.4 L MCHC 31.8 L RDW 18.4 H Plt Count 241 D MPV 10.3 Neut % (Auto) 78.4 H Lymph % (Auto) 11.7 [place] % (Auto) 8.1 H Eos % (Auto) 1.2 Baso % (Auto) 0.6 Neut # (Auto) 7.0 Lymph # (Auto) 1.1 [place] # (Auto) 0.7 Eos # (Auto) 0.1 Baso # (Auto) 0.1 WBC Differential . Differential Comment Auto diff final Sodium 141 Potassium 3.7 Chloride 103 Carbon Dioxide 24.7 Anion Gap 13 BUN 62 H Creatinine 5.23 H Estimated GFR 8 L POC Glucose 199 H Random Glucose 130 H Calcium 8.9 Total Bilirubin 0.5 AST 21 ALT 30 Alkaline Phosphatase 115 Total Protein 7.4 Albumin 3.5 11/01/17 11/01/17 11/02/17 16:05 19:54 00:06 WBC RBC Hgb Hct MCV MCH MCHC RDW Plt Count MPV Neut % (Auto) Lymph % (Auto) [place] % (Auto) Eos % (Auto) Baso % (Auto) Neut # (Auto) Lymph # (Auto) [place] # (Auto) Eos # (Auto) Baso # (Auto) WBC Differential Differential Comment Sodium Potassium Chloride Carbon Dioxide Anion Gap BUN Creatinine Estimated GFR POC Glucose 332 H 343 H 158 H Random Glucose Calcium Total Bilirubin AST ALT Alkaline Phosphatase Total Protein Albumin 11/02/17 11/02/17 11/02/17 03:15 05:17 08:55 WBC RBC Hgb Hct MCV MCH MCHC RDW Plt Count MPV Neut % (Auto) Lymph % (Auto) [place] % (Auto) Eos % (Auto) Baso % (Auto) Neut # (Auto) Lymph # (Auto) [place] # (Auto) Eos # (Auto) Baso # (Auto) WBC Differential Differential Comment Sodium Potassium Chloride Carbon Dioxide Anion Gap BUN Creatinine Estimated GFR POC Glucose 72 150 H 173 H Random Glucose Calcium Total Bilirubin AST ALT Alkaline Phosphatase Total Protein Albumin Microbiology 10/26/17 22:25 Blood - Peripheral Aerobic Blood Culture - Final No growth in 5 days 10/26/17 22:25 Blood - Peripheral Anaerobic Blood Culture - Preliminary Assessment and Plan - Assessment (1) Pulmonary edema Code(s): J81.1 - Chronic pulmonary edema Status: Resolved (2) CHF (congestive heart failure) Code(s): I50.9 - Heart failure, unspecified Status: Chronic (3) LBBB (left bundle branch block) Code(s): I44.7 - Left bundle-branch block, unspecified Status: Chronic Onset Date: Unknown (4) Respiratory failure Code(s): J96.90 - Respiratory failure, unspecified, unspecified whether with hypoxia or hypercapnia Status: Resolved (5) IDDM (insulin dependent diabetes mellitus) Code(s): E11.9 - Type 2 diabetes mellitus without complications; Z79.4 - residential (current) use of insulin Status: Chronic (6) Hypothyroid Code(s): E03.9 - Hypothyroidism, unspecified Status: Chronic (7) ESRD (end stage renal disease) on dialysis Code(s): N18.6 - End stage renal disease; Z99.2 - Dependence on renal dialysis Status: Chronic (8) Anemia Code(s): D64.9 - Anemia, unspecified Status: Chronic - Plan 72-year-old female with Delirium-resolved Continue home dose of alprazolam 0.25 mg twice daily as needed, hold home Restoril Haldol IV as needed for agitation Acute respiratory failure-resolved Pulmonary edema-Resolved DuoNeb every 6 hours. Albuterol q2 hours as needed. Extubated 10/28/2017, tolerating well. 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 Pulmonary edema Acute exacerbation of systolic heart failure Ischemic cardiomyopathy EF 30% approximately Hypertension Hyperlipidemia Coronary artery disease with prior stents (reportedly about a year ago) Left bundle branch block Continue home dose of Lasix and metolazone 2D echo report pending, according to Dr. Keene EF 30% approximately Continue aspirin, Brilinta, statin, beta-jeff. 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 Newton". She has been on HD ~ 1year. Appreciate input from nephrology, continue with hemodialysis s/p Vas-Cath placement October 31, 2017. Vas-Cath to be removed by patient training and development project leader if aVF walking Leukocytosis-resolved She received Zosyn and vancomycin in the emergency department. Blood cultures, sputum and urine culture were sent. Blood cx neg to date. s/p Vanc Chronic anemia Monitor CBC Insulin-dependent diabetes mellitus Hypoglycemia-resolved Patient ripped off her insulin pump. Continue Levemir 5 units every 12 hours and sliding scale insulin Patient will follow outpatient with Endocrinology Hypothyroidism Follow-up TSH, continue Synthroid (1) Pulmonary edema Qualifiers: Chronicity: acute Qualified Code(s): J81.0 - Acute pulmonary edema (2) CHF (congestive heart failure) Qualifiers: Heart failure type: systolic Heart failure chronicity: acute Qualified Code( s): I50.21 - Acute systolic (congestive) heart failure
--- NOTE | 2017-11-02 11:49 | P.PNNP ---
Subjective Interval history: Patient seen alert, no SOB, feeling well, want to go home. Physical Exam Vital signs: Vital Signs 11/01/17 12:00 11/01/17 16:00 11/01/17 20:00 Temperature 97.8 F 98.1 F 97.7 F Pulse Rate 68 67 66 Respiratory Rate 20 18 17 Blood Pressure 137/63 132/60 121/56 L Pulse Oximetry 98 98 97 11/02/17 00:00 11/02/17 04:00 11/02/17 04:05 Temperature 97.5 F L 97.9 F Pulse Rate 59 L 59 L 66 Respiratory Rate 20 16 Blood Pressure 115/63 111/68 Pulse Oximetry 98 94 L 11/02/17 08:00 Temperature 97.3 F L Pulse Rate 69 Respiratory Rate 18 Blood Pressure 140/66 Pulse Oximetry 98 Intake & Output 11/01/17 11/02/17 11/02/17 18:59 06:59 18:59 Intake Total 480 / 480 Output Total 1999 300 / 300 Balance -1999 180 / 180 Weight 61.8 kg Intake: Oral 480 / 480 Output: Urine 300 / 300 Hemodialysis Amount 1999 Other: # Voids 3 Date of Last Bowel Movement 10/31/17 10/31/17 Narrative: GENERAL: NAD. SKIN: Warm and dry. HEAD: Normocephalic. EYES: No scleral icterus. No injection or drainage. NECK: Supple, trachea midline. No JVD or lymphadenopathy. Vas-Cath in place CARDIOVASCULAR: Regular rate and rhythm without murmurs, gallops, or rubs. RESPIRATORY: Breath sounds equal bilaterally. No accessory muscle use. GASTROINTESTINAL: Abdomen soft, non-tender, nondistended. MUSCULOSKELETAL: No cyanosis, or edema. BACK: Nontender without obvious deformity. No CVA tenderness. - Urinary Catheter Management Indwelling Urethral Catheter Cath placed during this visit: yes Reason for continuing: Hourly intake/output Insertion date: 10/26/17 Insertion time: 00:29 Indwelling Temp Sensing Catheter Cath placed during this visit: no Assessment and Plan - Plan 1. End-stage renal disease. Left lower AVF with positive thrill and bruit. Hemodialysis yesterday. AVF has poor flow, got Vascath as she is on Brilinta. 2. Pulmonary edema. The patient has underlying chronic obstructive pulmonary disease with possible congestive heart failure and history of coronary artery disease. On room air 3. Hypertension. The patient had initial blood pressure of 200/83; however, now it is better. 4. Insulin-dependent diabetes. Continue to monitor with insulin sliding scale. Patient has been on HD MWF. Has low BF via AVF and Vascath done. Patient told to take care of VasCath after D/C. Can be discharged from Nephrology. If AVF working, Vascath to be removed by her Imagery Analyst. Patient to continue HD at her center and to follow with her Imagery Analyst.
--- NOTE | 2017-11-02 12:20 | P.DS ---
Date of admission: 10/26/17 23:18 Primary care physician: UNKNOWN Anticipated date of discharge: 11/02/17 Brief History from admission: female with history of coronary artery disease with prior stents approximately 1 year ago, hypertension, diabetes mellitus on home insulin pump, end-stage renal disease on hemodialysis Saturday/Saturday/Saturday for the last year, former smoker ( also states "h/o [place] or a stroke" but indicates no neuro deficits. She lives in [place] and she and her were driving home from [place] when she developed worsening SOB. Her states that she has difficulty with SOB that has been slowly progressing over months and that she "has good days and bad days" but her mobility is often limited by dyspnea while using her walker to walk a ~3-5 yards. She is not on home O2. She has been short of breath throughout the day today and thus had increased use of her nebulizer. Has chronic cough in the morning, not changed from baseline. No fever, sputum production, hemoptysis, chest pain, pleuritic symptoms, leg swelling or calf pain. She was in the car this evening when SOB worsened and her called 911. Sats were 77% when [facility] arrived and she had poor air movement bilaterally so she was given a DuoNeb. After the neb she reportedly had bibasilar Rales and so she was placed on CPAP however on CPAP her respiratory condition continued to worsen and she became less responsive. She was intubated in the field after receiving etomidate 20 mg IV and Versed 4 mg IV. EVAC also administered Lasix 70 mg IV. A Grissom catheter has been inserted in the ED and she has 300 of light yellow urine output. Chest x-ray shows satisfactory endotracheal tube and OG tube position. She has pulmonary edema. Her BP was 200/83 on arrival but has normalized after sedation with propofol. She has received vancomycin and Zosyn in the emergency department. EKG showed LBBB and there was no prior EKG for comparison ( unsure if pre-existing) . Troponin 0.03. Dr. Bullard discussed with Dr. Keene who recommended routine cardiology consultation. Last hemodialysis was performed in [place] on Saturday, 10/25. H DS: Diagnosis - Discharge Diagnosis (1) Pulmonary edema Status: Resolved (2) CHF (congestive heart failure) Status: Chronic (3) LBBB (left bundle branch block) Status: Chronic (4) Respiratory failure Status: Resolved (5) IDDM (insulin dependent diabetes mellitus) Status: Chronic (6) Hypothyroid Status: Chronic (7) ESRD (end stage renal disease) on dialysis Status: Chronic (8) Anemia Status: Chronic DS: Summary Hospital Course: While in hospital, patient was treated for; Delirium-resolved She was treated with home dose of alprazolam 0.25 mg twice daily as needed, hold home Restoril Haldol IV as needed for agitation Acute respiratory failure-resolved Pulmonary edema-Resolved DuoNeb every 6 hours. Albuterol q2 hours as needed. Extubated 10/28/2017, tolerating well. 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 Pulmonary edema Acute exacerbation of systolic heart failure Ischemic cardiomyopathy EF 30% approximately Hypertension Hyperlipidemia Coronary artery disease with prior stents (reportedly about a year ago) Left bundle branch block She was treated with home dose of Lasix and metolazone She was seen by wet wash assembler She was treated with aspirin, Brilinta, statin, beta-jeff. End-stage renal disease on HD Continue home Lasix and metolazone Her clinical rehabilitation liaison is from [facility], states "Dr. Newton". She has been on HD ~ 1year. Appreciate input from nephrology, continue with hemodialysis s/p Vas-Cath placement October 31, 2017. Vas-Cath to be removed by patient's own clinical rehabilitation liaison if aVF working Leukocytosis-resolved She received Zosyn and vancomycin in the emergency department. Blood cultures, sputum and urine culture were sent. Blood cx neg to date. All antibiotics were discontinued Chronic anemia Monitor CBC Insulin-dependent diabetes mellitus Hypoglycemia-resolved Patient ripped off her insulin pump. She was started on Levemir 5 units every 12 hours and sliding scale insulin Patient will follow outpatient with Endocrinology Hypothyroidism Follow-up TSH, continue Synthroid - Time Spent with Patient Total time spent providing and/or coordinating discharge services: Greater than 30 minutes - Quality: VTE Deep Vein Thrombosis/Pulmonary Embolism Present on Admission: No Exam Vital signs: Vital Signs 11/01/17 16:00 11/01/17 20:00 11/02/17 00:00 Temperature 98.1 F 97.7 F 97.5 F L Pulse Rate 67 66 59 L Respiratory Rate 18 17 20 Blood Pressure 132/60 121/56 L 115/63 Pulse Oximetry 98 97 98 11/02/17 04:00 11/02/17 04:05 11/02/17 08:00 Temperature 97.9 F 97.3 F L Pulse Rate 59 L 66 69 Respiratory Rate 16 18 Blood Pressure 111/68 140/66 Pulse Oximetry 94 L 98 Intake & Output 11/01/17 11/02/17 11/02/17 18:59 06:59 18:59 Intake Total 480 / 480 Output Total 1999 300 / 300 Balance -1999 180 / 180 Weight 61.8 kg Intake: Oral 480 / 480 Output: Urine 300 / 300 Hemodialysis Amount 1999 Other: # Voids 3 Date of Last Bowel Movement 10/31/17 10/31/17 Narrative: GENERAL: NAD SKIN: Warm and dry. HEAD: Normocephalic. EYES: No scleral icterus. No injection or drainage. NECK: Supple, trachea midline. No JVD or lymphadenopathy. CARDIOVASCULAR: Regular rate and rhythm without murmurs, gallops, or rubs. RESPIRATORY: Breath sounds equal bilaterally. No accessory muscle use. GASTROINTESTINAL: Abdomen soft, non-tender, nondistended. MUSCULOSKELETAL: No cyanosis, or edema. BACK: Nontender without obvious deformity. No CVA tenderness. Results Procedures completed during hospitalization: Vas-Cath placement by interventional radiology Labs on day of discharge: Labs from last 24 hours 11/02/17 11/02/17 11/02/17 08:55 05:17 03:15 POC Glucose 173 H 150 H 72 11/02/17 11/01/17 11/01/17 00:06 19:54 16:05 POC Glucose 158 H 343 H 332 H 11/01/17 12:35 POC Glucose 199 H Preliminary micro results at discharge 10/26/17 22:25 Anaerobic Blood Culture - Preliminary Blood - Peripheral - Impressions ITS Impressions Venous Doppler Study 10/27/17 00:00 CONCLUSION: 1. The study is negative for bilateral lower extremity deep venous thrombosis. Chest X-Ray 10/29/17 06:00 CONCLUSION: 1. Patient has been extubated with NG tube removed. 2. Low lung volumes without acute abnormality. Catheter Placement 10/31/17 00:00 CONCLUSION: 1. Uncomplicated line placement as above. Discharge Plan - Discharge Condition Condition: Critical - Physicians Team Primary Care Provider: UNKNOWN, Attending Provider: Shane Joseph Other Providers: Dionisio Keene MD ; Gianni Morales MD
== END 2017-11-02 13:50 | disposition home or self-care (01) ==
LOC: NEPE 20:40 → EDBD 23:18 → NEDA 23:18 → HIMC 10-27 02:05 → N04 10-30 16:15
PROVIDERS: ADMIT Hospitalist; ATTEND Hospitalist